=== PATIENT | male | born 1970 | race African-American/Black ===

== ENCOUNTER → 2018-03-04 16:19 | Outpatient (CLI) | payer MEDICARE, MEDICAID ==
[~2018-03-04 16:19] MED LIST: CHOLESTEROL PILL; LOPID600 MG; NORCO 7.5/325 T1 TA1 PO
[2018-04-20 09:12] VITALS: BMI 25.4
== END | disposition home or self-care (01) ==
LOC: D.MRI 16:19
DX: M25.561 Pain in right knee (principal)

== ENCOUNTER 2018-03-20 01:20 | Emergency (ER) | payer MEDICARE, MEDICAID ==
[~2018-03-20] VITALS: Ht 167.6 cm; Wt 70.9 kg
[2018-03-20 01:37] VITALS: Ht 167.6 cm; Wt 70.9 kg
[2018-03-20] MEDS ORDERED: CHOLESTEROL PILL (01:39)
[2018-03-20] MEDS ORDERED: NORCO 7.5/325 T1 TA1 PO (02:52)
[2018-03-20 03:12] VITALS: BP 136/78
[2018-04-23 05:41] VITALS: Ht 167.6 cm; Wt 70.9 kg
== END 2018-03-20 03:17 | disposition home or self-care (01) ==
LOC: D.ER 01:20
DX: S83.206D Unspecified tear of unspecified meniscus, current injury, right knee, subsequent encounter (principal); X58.XXXD Exposure to other specified factors, subsequent encounter; F17.200 Nicotine dependence, unspecified, uncomplicated

== ENCOUNTER 2018-04-11 15:42 | Outpatient (CLI) | payer MEDICARE ==
[~2018-04-11 15:42] MED LIST changes: -LOPID600 MG
[2018-04-23 05:41] VITALS: BMI 25.4
== END 2018-04-11 15:43 | disposition home or self-care (01) ==
LOC: D.OPS 15:42
DX: S83.281A Other tear of lateral meniscus, current injury, right knee, initial encounter (principal); Z01.810 Encounter for preprocedural cardiovascular examination; Z01.811 Encounter for preprocedural respiratory examination; Z01.812 Encounter for preprocedural laboratory examination; Z53.9 Procedure and treatment not carried out, unspecified reason

== ENCOUNTER 2018-04-20 07:00 | Day surgery (SDC) | payer MEDICARE ==
[2018-04-11 09:14] LABS: BASOPHILS 0.2 % (0-2); HEMATOCRIT 39.4 % (42.0-54.0); HEMOGLOBIN 13.4 g/dL (13.5-17.5); IMMATURE GRANULOCYTES 0.2 % (0-5); LYMPHOCYTES 19.8 % (15-50); MCH 27.8 pg (26.0-34.0); MCV 81.7 fL (80.0-100.0); MEAN PLATELET VOLUME 10.8 fL (7.4-10.4); MONOCYTES 12.2 % (2-11); NEUTROPHILS 62.6 % (40-80); PLATELET COUNT 186 10x3/uL (130-400); RBC 4.82 10x6/uL (4.20-6.10); RDW 12.6 % (11.5-14.5)
[2018-04-11 09:23] LABS: ANION GAP 9.2 mmol/L (8-16); CALCIUM 9.1 mg/dL (8.5-10.1); CARBON DIOXIDE 30.3 mmol/L (21.0-32.0); CREATININE - SERUM 1.2 mg/dL (0.6-1.3); POTASSIUM - SERUM 3.5 mmol/L (3.5-5.1)
[~2018-04-20] VITALS: Ht 167.6 cm; Wt 71.2 kg
[2018-04-20 07:35] LABS: ANION GAP 15.1 mmol/L (8-16); CARBON DIOXIDE 25.6 mmol/L (21.0-32.0); CREATININE - SERUM 1.2 mg/dL (0.6-1.3); POTASSIUM - SERUM 3.7 mmol/L (3.5-5.1)
[2018-04-20 07:58] LABS: BASOPHILS 1.3 % (0-2); EOSINOPHILS 4.7 % (0-7); HEMATOCRIT 38.6 % (42.0-54.0); HEMOGLOBIN 13.1 g/dL (13.5-17.5); IMMATURE GRANULOCYTES 0.8 % (0-5); LYMPHOCYTES 37.3 % (15-50); MCH 27.3 pg (26.0-34.0); MCHC 33.9 g/dL (31.0-37.0); MCV 80.6 fL (80.0-100.0); MEAN PLATELET VOLUME 11.1 fL (7.4-10.4); MONOCYTES 16.8 % (2-11); NEUTROPHILS 39.1 % (40-80); RBC 4.79 10x6/uL (4.20-6.10); RDW 12.7 % (11.5-14.5); WBC 3.8 10x3/uL (4.8-10.8)
[2018-04-20 07:59] LABS: PLATELET COUNT 236 10x3/uL (130-400)
[2018-04-20] MEDS ORDERED: LOPID600 MG (09:02)
[2018-04-20 09:12] VITALS: BP 103/72; Ht 167.6 cm; Wt 71.2 kg
== END 2018-04-20 18:40 | disposition home or self-care (01) ==
LOC: D.OPS 07:00
PROVIDERS: Orthopaedic Surgery
DX: S83.281A Other tear of lateral meniscus, current injury, right knee, initial encounter (principal); M23.51 Chronic instability of knee, right knee; Z01.810 Encounter for preprocedural cardiovascular examination; Z01.811 Encounter for preprocedural respiratory examination; Z01.812 Encounter for preprocedural laboratory examination

== ENCOUNTER 2018-04-22 23:14 | Inpatient (IN) | payer MEDICARE ==
[~2018-04-22] VITALS: Ht 167.6 cm; Wt 64.8 kg
--- NOTE | ~2018-04-22 | PN ---
PATIENT:JOANNE DIANE MEDICAL RECORD: [id number] LOCATION:D. D.211 ADMISSION DATE: 04/23/18 PROGRESS NOTE DATE OF SERVICE: 04/24/2018 SUBJECTIVE: This is a 47-year-old man who has had ankle fracture, it was repaired. The patient noted onset of shortness of breath, wheezes, and coughing. Also, has some chest pain when taking deep breaths. The patient was seen in the Emergency Room and CT scan showed bilateral hilar adenopathy as well as infiltrates. The patient was admitted to medical floor with the suspicion of sarcoidosis. He had pneumonia. The patient was started on antibiotics and prednisone. The patient feels better, breathing easier, and with no coughing now. PHYSICAL EXAMINATION: GENERAL: Physical exam reveals a well-developed, well-nourished man who is in no acute distress. VITAL SIGNS: Temperature 98.4, heart rate of 60, respiratory rate of 20, blood pressure 125/55, saturation is 96%. SHEENT: Unremarkable. NECK: Supple. No adenopathy. There are no supraclavicular nodes. LUNGS: Clear, symmetric, no wheezes, no coughing. HEART: Exam shows no jugular venous distention, no murmur or gallops. ABDOMEN: Benign, without any tenderness, distention or masses. EXTREMITIES: No clubbing, cyanosis or edema. LABORATORY DATA: White count 4.5, hemoglobin 10.9. Her chemistries are within normal limits. ASSESSMENT: 1. Pneumonia, likely from aspiration or community acquired or possibly healthcare associated post-surgery. The patient is improving on antibiotics. 2. Bilateral hilar adenopathy, most likely secondary to sarcoidosis. The patient improved on prednisone. Discussed the possibility of having a mediastinoscopy for biopsy and for diagnosis. The patient is agreeable to having this as an outpatient. 3. Ankle fracture. PLAN: 1. Continue prednisone. 2. Continue antibiotics and brochodilators. TRANSINT:[id number] Voice Confirmation ID: [id number] DOCUMENT ID: [id number] PROGRESS NOTE [id number] JOANNE DIANE MYRANDA LANGFORD at 1307 CC: [id number] DICTATION DATE: 04/24/18 5741 NET DEVELOPER CONTRACT: 04/25/18 0650 DIS IN 04/25/18 [facility] [address] [place] [address]
--- NOTE | ~2018-04-22 | CN ---
PATIENT NAME:JOANNE DIANE MEDICAL RECORD: [id number] : 70 LOCATION:D. D.2113 ADMIT DATE: 04/23/18 ACCOUNT: [id number] CONSULTING PHYSICIAN: MYRANDA LANGFORD REFERRING PHYSICIAN: SARAH LOMBARDI MD DATE OF CONSULTATION: 04/23/2018 HISTORY OF PRESENT ILLNESS: This is a 47-year-old man who has had a surgery recently. The patient recently had ankle surgery, right knee scope. The patient presented to the Emergency Room with shortness of breath as well as right chest pain. CT scan did not show any pulmonary emboli, but showed bilateral hilar adenopathy. The patient denies any fever or chills. There is no history of sarcoidosis. There is no family history. There is no orthopnea or PND. PAST MEDICAL HISTORY: Remarkable for angina, pneumonia. PAST SURGICAL HISTORY: The patient also had the hernia repair. He has also had ear tubes. He has also had the right knee arthroscopy. No diabetes or hypertension. ALLERGIES: Include SULFA, AMOXICILLIN, as well as PENICILLIN. MEDICATIONS: Include hydrocodone 7.5 q.4 hours p.r.n. FAMILY HISTORY: Remarkable for hypertension. SOCIAL HISTORY: The patient is a former smoker, has not smoked in the last month, has not drank or used any recreational drugs. REVIEW OF SYSTEMS: CONSTITUTIONAL: The patient denies any fever, chills, or headaches. The patient has lost some weight recently. SHEENT: Unremarkable. There is no nasal drainage. CARDIOPULMONARY: The patient denies orthopnea or PND. There is no anginal chest pain. GASTROINTESTINAL: There is no nausea, vomiting, or abdominal pain. GENITOURINARY: There is no frequency or dysuria. PHYSICAL EXAMINATION: GENERAL: Reveals middle-aged man who is in no acute distress. VITAL SIGNS: Blood pressure 150/86, heart rate of 68, respiratory rate of 18, temperature 98.6. SHEENT: Unremarkable. SKIN: No skin lesions. NECK: Supple. There is no tenderness. There is no adenopathy. Trachea is midline. No thyromegaly. CHEST: Shows mild inspiratory and expiratory wheeze on the left. There is no chest wall tenderness. HEART: Shows no jugular venous distention, murmur or gallops. ABDOMEN: Benign. EXTREMITIES: Shows no clubbing, cyanosis or edema. Right leg has an Davin wrap from the surgery. LABORATORY DATA: Showed white count of 5.8, hemoglobin 12.2, and platelet count CONSULT REPORT [id number] JOANNE DIANE is 211,000. Chemistry is remarkable for potassium 3.9, creatinine is 1.1, glucose is 109. Coronary angiogram showed mild patchy airspace disease in the lower lungs bilaterally. There is right greater than left nonspecific, likely representing atelectasis or infectious infiltrate. There is bulky bilateral hilar lymphadenopathy with subcarinal lymphadenopathy. Possible sarcoidosis. Chest x-ray shows no acute disease. ASSESSMENT: 1. Bilateral infiltrates or mucous plugs. 2. Bilateral hilar adenopathy suggestive of sarcoidosis. 3. Ankle surgery, recent. There is no PE. DISCUSSION: The patient most likely has a pneumonia and also sarcoidosis. The patient may need systemic steroids at this time because of some narrowing restriction on auscultation. He may need a biopsy of mediastinal lymph node for diagnosis. There is no obvious skin or peripheral lesions. PLAN: 1. Systemic steroids. 2. Bronchodilators. 3. Empiric antibiotics. 4. Oxygen supplementation as needed. Keep the sat above 92%. Time spent is 60 minutes discussing with the patient and family. TRANSINT:[id number] Voice Confirmation ID: [id number] DOCUMENT ID: [id number] MYRANDA LANGFORD at 1759 CC: [id number] DICTATION DATE: 04/23/181923 TELEPHONE ENGINEER: 04/24/18 0447 ADM IN [id number] [place] [address]
[~2018-04-22 23:14] MED LIST changes: +LOPID600 MG
[2018-04-23] VITALS (7 sets, daily range): BP systolic 100–126; BP diastolic 66–86; Ht 167.6 cm; Wt 64.8 kg
[2018-04-23 00:13] LABS: APTT 25.6 SECONDS (22.8-39.4); INR 1.1 (0.85-1.17); PROTIME 13.8 SECONDS (11.6-15.0)
[2018-04-23 00:14] LABS: D-DIMER-QUANTITATIVE 0.76 ug/mLFEU (0.20-0.54)
[2018-04-23 00:22] LABS: ALBUMIN 3.2 g/dL (3.4-5.0); ALKALINE PHOSPHATASE 68 U/L (46-116); ALT (SGPT) 36 U/L (10-68); BILIRUBIN - TOTAL 0.85 mg/dL (0.2-1.3); CALC OSMOLALITY 279 mosm/kg (275-300); CALCIUM 8.6 mg/dL (8.5-10.1); CARBON DIOXIDE 27.8 mmol/L (21.0-32.0); CHLORIDE - SERUM 104 mmol/L (98-107); CREATININE - SERUM 1.1 mg/dL (0.6-1.3); GLUCOSE 109 mg/dL (74-106); POTASSIUM - SERUM 3.9 mmol/L (3.5-5.1); PROTEIN - SERUM 6.7 g/dL (6.4-8.2); SODIUM 140 mmol/L (136-145); UREA NITROGEN 12 mg/dL (7-18); eGFR NON AFRICAN AMERICAN 76 mL/min (90-120)
[2018-04-23 00:26] LABS: BASOPHILS 0.5 % (0-2); EOSINOPHILS 2.4 % (0-7); HEMATOCRIT 36.2 % (42.0-54.0); HEMOGLOBIN 12.2 g/dL (13.5-17.5); IMMATURE GRANULOCYTES 0.3 % (0-5); LYMPHOCYTES 13.1 % (15-50); MCH 27.2 pg (26.0-34.0); MCHC 33.7 g/dL (31.0-37.0); MCV 80.8 fL (80.0-100.0); MEAN PLATELET VOLUME 10.9 fL (7.4-10.4); MONOCYTES 10.5 % (2-11); NEUTROPHILS 73.2 % (40-80); PLATELET COUNT 211 10x3/uL (130-400); RBC 4.48 10x6/uL (4.20-6.10); RDW 12.7 % (11.5-14.5); WBC 5.8 10x3/uL (4.8-10.8)
[2018-04-23 00:33] LABS: CKMB 0.3 U/L (0.0-3.6); CREATINE KINASE 94 UL (21-232); MAGNESIUM - SERUM 1.6 mg/dL (1.8-2.4); TROPONIN-I 0.016 ng/mL (0.000-0.060)
[2018-04-23 15:02] LABS: CKMB 0.3 U/L (0.0-3.6); CREATINE KINASE 60 UL (21-232)
[2018-04-23 15:03] LABS: TROPONIN-I < 0.017 ng/mL (0.000-0.060)
[2018-04-23 19:04] LABS: CKMB 0.5 U/L (0.0-3.6); CREATINE KINASE 76 UL (21-232)
[2018-04-23 19:05] LABS: TROPONIN-I 0.017 ng/mL (0.000-0.060)
[2018-04-24 02:52] LABS: BASOPHILS 0.4 % (0-2); EOSINOPHILS 4.4 % (0-7); HEMATOCRIT 32.6 % (42.0-54.0); HEMOGLOBIN 10.9 g/dL (13.5-17.5); IMMATURE GRANULOCYTES 0.2 % (0-5); LYMPHOCYTES 27.8 % (15-50); MCH 27.1 pg (26.0-34.0); MCHC 33.4 g/dL (31.0-37.0); MCV 81.1 fL (80.0-100.0); MEAN PLATELET VOLUME 10.7 fL (7.4-10.4); MONOCYTES 12.4 % (2-11); NEUTROPHILS 54.8 % (40-80); PLATELET COUNT 191 10x3/uL (130-400); RBC 4.02 10x6/uL (4.20-6.10); RDW 12.8 % (11.5-14.5); WBC 4.5 10x3/uL (4.8-10.8)
[2018-04-24 03:07] LABS: ALBUMIN 2.7 g/dL (3.4-5.0); ALKALINE PHOSPHATASE 76 U/L (46-116); ALT (SGPT) 33 U/L (10-68); BILIRUBIN - TOTAL 0.68 mg/dL (0.2-1.3); CALC OSMOLALITY 280 mosm/kg (275-300); CALCIUM 8.2 mg/dL (8.5-10.1); CARBON DIOXIDE 23.3 mmol/L (21.0-32.0); CHLORIDE - SERUM 108 mmol/L (98-107); GLUCOSE 123 mg/dL (74-106); MAGNESIUM - SERUM 1.8 mg/dL (1.8-2.4); POTASSIUM - SERUM 4.1 mmol/L (3.5-5.1); PROTEIN - SERUM 6.1 g/dL (6.4-8.2); SODIUM 141 mmol/L (136-145); UREA NITROGEN 9 mg/dL (7-18); eGFR NON AFRICAN AMERICAN 85 mL/min (90-120)
[2018-04-24 03:23] LABS: CKMB 0.4 U/L (0.0-3.6); CREATINE KINASE 72 UL (21-232); TROPONIN-I 0.021 ng/mL (0.000-0.060)
[2018-04-24 04:00] VITALS: BP 123/85
[2018-04-24 08:37] VITALS: BP 129/76
[2018-04-24 12:27] VITALS: BP 125/55
[2018-04-24 20:00] VITALS: BP 126/76
[2018-04-25] VITALS: BP 117/69
[2018-04-25 04:00] VITALS: BP 126/75
[2018-04-25 05:03] LABS: BASOPHILS 0.1 % (0-2); EOSINOPHILS 0.1 % (0-7); HEMATOCRIT 32.5 % (42.0-54.0); LYMPHOCYTES 13.6 % (15-50); MCH 27.3 pg (26.0-34.0); MCHC 33.8 g/dL (31.0-37.0); MCV 80.6 fL (80.0-100.0); MEAN PLATELET VOLUME 11.1 fL (7.4-10.4); MONOCYTES 6.7 % (2-11); NEUTROPHILS 78.5 % (40-80); PLATELET COUNT 225 10x3/uL (130-400); RBC 4.03 10x6/uL (4.20-6.10); RDW 12.8 % (11.5-14.5)
[2018-04-25 05:22] LABS: WBC 7.4 10x3/uL (4.8-10.8)
[2018-04-25 05:46] LABS: ALBUMIN 2.6 g/dL (3.4-5.0); ALKALINE PHOSPHATASE 82 U/L (46-116); ALT (SGPT) 30 U/L (10-68); BILIRUBIN - TOTAL 0.43 mg/dL (0.2-1.3); CALC OSMOLALITY 286 mosm/kg (275-300); CALCIUM 8.2 mg/dL (8.5-10.1); CARBON DIOXIDE 22.2 mmol/L (21.0-32.0); CHLORIDE - SERUM 110 mmol/L (98-107); CREATININE - SERUM 0.8 mg/dL (0.6-1.3); MAGNESIUM - SERUM 1.9 mg/dL (1.8-2.4); PROTEIN - SERUM 6.3 g/dL (6.4-8.2); SODIUM 143 mmol/L (136-145); UREA NITROGEN 7 mg/dL (7-18); eGFR NON AFRICAN AMERICAN > 90 mL/min (90-120)
[2018-04-25 05:49] LABS: GLUCOSE 173 mg/dL (74-106)
[2018-04-25 09:39] VITALS: BP 133/83
[2018-04-25 12:32] VITALS: BP 128/88
[2018-04-25 17:05] VITALS: BP 127/78
[2018-04-25] MEDS ORDERED: ZITHROMAX250 MG PO (18:52)
[2018-04-25] MEDS ORDERED: STERAPRED DS 1010 MG PO (18:53)
== END 2018-04-25 20:20 | disposition home or self-care (01) | DRG 195 ==
LOC: D.ER 23:14 → D.M2 04-23 03:20 → D.EDHOLD 04-23 03:20 → D.M2 04-23 04:19
PROVIDERS: Family Medicine; Family Medicine Adult Medicine
DX: J18.9 Pneumonia, unspecified organism (principal); S82.891D Other fracture of right lower leg, subsequent encounter for closed fracture with routine healing; R59.0 Localized enlarged lymph nodes

== ENCOUNTER 2019-03-07 19:33 | Observation (INO) | payer MEDICARE, OTHER ==
[~2019-03-07] VITALS: Ht 167.6 cm; Wt 74.1 kg
--- NOTE | ~2019-03-07 | HEMODYNAMI ---
PATIENT:JOANNE DIANE MEDICAL RECORD: [id number] : 70 [facility] AD[facility]ION DATE: 03/07/19 Generatedon:03/08/201910:51 Patient name: JOANNE DIANE Patient #: [id number] SSN: D OB: 1970 Date of study: 03/08/2019 Page: Of Hemodynamic Procedure Report Patient Data Patient Demographics Procedure consent was obtained First Name: JOANNE Gender: Male Last Name: ROXI : 1970 Middle Initial: M Age: 48 year(s) Patient #: [id number] Race: Black Additional ID: [id number] Contact details [address]: [address] [place] [address] State: [place] City: [place] Zip code: [address] Admission Admission Data Admission Date: 03/07/2019 Admission Time: 20:39 Room #: .2120 Weight (lbs.): 163.14 Weight (kg.): 74 Procedure Procedure Types Cath Procedure Diagnostic Procedure LHC LHC w/Coronaries FFR/IVUS FFR Initial FFR Additional Sedation Charges Moderate Sedation up to 15 minutes PCI Procedure Coronary Stent Coronary Stent Initial Procedure Description Procedure Date Procedure Date: 03/08/2019 Procedure Start Time: 10:29 Procedure End Time: 10:47 Procedure Staff Name Function Savage Dillon MD Performing Physician Isreal Schneider RT Monitor Fercho Kruger RT Monitor Richard Latham RN Nurse Izabel John RN Motion Picture Equipment Supervisor Trevor Villanueva RT Scrub Procedure Data Cath Procedure Fluoroscopy Diagnostic fluoroscopy Total fluoroscopy Time: 3.2 time: 3.2 min min Diagnostic fluoroscopy Total fluoroscopy dose: 564 dose: 564 mGy mGy Contrast Material Contrast Material Type Amount (ml) Isovue 300 99 Entry Location Entry Primary Successful Side Size Upsize Upsize Entry Closure Succes sful Closure Location (Fr) 1 (Fr) 2 (Fr) Remarks Device Remarks Femoral Right 5 Fr 6 Fr Exoseal artery Short Estimated blood loss: 10 ml Diagnostic catheters Device Type Used For End Catheter Placement MULTIPACK Pigtail 5 Fr Procedure catheter MULTIPACK JL 4.0 5Fr Procedure catheter MULTIPACK 3DRC 5Fr Procedure catheter Procedure Complications No complications Procedure Medications Medication Administration Route Dosage 0.9% NaCl I.V. 100 ml/hr Oxygen 2 l/min Heparin Flush Bag added to field 2 bags (1000units/500ml NS) Lidocaine 2% added to field 20 Benadryl I.V. 50 mg Versed I.V. 1 mg Fentanyl I.V. 50 mcg Heparin Bolus I.V. 4000 units Plavix P.O. 75 mg Hemodynamics Rest Heart Rate: 68 (bpm) Pressure Samples Time Site Value (mmHg) Purpose Heart Use Rate(bpm) 10:30 LV 146/17,27 Snapshot 62 Snapshots Pre Cath Intra NCS Post Cath Vital Signs Time Heart Resp SPO2 etCO2 NIBP (mmHg) Rhythm Pain Sedation Rate (ipm) (%) (mmHg) Status Level (bpm) 9:38:59 73 24 100 0 147/89(106) NSR 0 (11) 10(A) , No pain 9:43:15 68 24 100 0 127/81(102) NSR 0 (11) 10(A) , No pain 9:47:23 67 25 100 32.4 124/81(95) NSR 0 (11) 10(A) , No pain 9:51:33 71 24 100 33.9 118/73(92) NSR 0 (11) 10(A) , No pain 9:55:41 68 22 100 36.2 126/68(84) NSR 0 (11) 10(A) , No pain 9:59:50 67 18 100 35.4 114/72(92) NSR 0 (11) 10(A) , No pain 10:03:56 63 21 100 34.7 112/71(85) NSR 0 (11) 10(A) , No pain 10:08:02 62 21 100 33.9 123/68(89) NSR 0 (11) 10(A) , No pain 10:12:12 67 21 100 34.7 113/66(81) NSR 0 (11) 10(A) , No pain 10:16:18 65 21 100 33.9 115/67(89) NSR 0 (11) 10(A) , No pain 10:20:23 63 23 100 32.4 116/71(86) NSR 0 (11) 10(A) , No pain 10:24:31 61 19 100 34.7 113/66(85) NSR 0 (11) 9(A) , No pain 10:28:37 62 19 100 35.4 109/68(83) NSR 0 (11) 9(A) , No pain 10:32:41 66 21 100 34.6 115/67(90) NSR 0 (11) 9(A) , No pain 10:36:45 64 19 100 36.2 117/72(92) NSR 0 (11) 9(A) , No pain 10:40:50 69 20 98 38.5 113/70(80) NSR 0 (11) 9(A) , No pain 10:44:56 62 20 100 34.7 117/68(86) NSR 0 (11) 9(A) , No pain Medications Time Medication Route Dose Verified Delivered Reason Notes Effectiveness by by 9:46:19 0.9% NaCl I.V. 100 Richard Richard Per physician ml/hr Noa Latham RN RN 9:46:31 Oxygen 2 Richard Richard for low 02 sats l/min Noa Latham RN RN 9:46:43 Heparin Flush added 2 Richard Richard used for Bag to bags Noa Latham procedure (1000units/500ml RN RN NS) 9:46:55 Lidocaine 2% added 20ml Richard Richard for local to vial Noa Latham anesthetic field [facility] RN 9:47:05 Benadryl I.V. 50 mg Richard Richard Per physician Noa Latham RN RN 10:23:06 Versed I.V. 1 mg Richard Richard for sedation Noa Latham RN RN 10:23:16 Fentanyl I.V. 50 Richard Richard for sedation mcg Noa Latham RN RN 10:41:20 Heparin Bolus I.V. 4000 Richard Richard for units Noa Latham anticoagulation RN RN 10:51:10 Plavix P.O. 75 mg Richard Richard for Noa Latham antiplatelet RN RN therapy Procedure Log Time Note 9:15:24 Trevor MONREAL(R) (CV) sent for patient. Start room use. 9:36:40 Time tracking: Regular hours (M-F 7:00 - 5:00) 9:36:44 Plan of Care:Hemodynamics will remain stable., Cardiac rhythm will remain stable., Comfort level will be maintained., Respiratory function will remain adequate., Patient/ family verbilizes understanding of procedure., Procedure tolerated without complication., Recovers from procedure without complications.. 9:37:09 Patient received from PCU to [facility] Alert and oriented. Tansferred to table in Supine position. 9:37:10 Warm blankets applied, and josep hugger turned on for patient comfort. 9:37:11 Correct patient and procedure confirmed by team. 9:37:12 Signed procedure consent form obtained from patient. 9:37:12 ECG and BP/O2 sat monitors applied to patient. 9:37:49 Vital chart was started 9:46:19 0.9% NaCl 100 ml/hr I.V. was administered by Richard Latham RN; Per physician; 9:46:27 Baseline sample Acquired. 9:46:31 Oxygen 2 l/min was administered by Richard Latham RN; for low 02 sats; 9:46:36 Rhythm: sinus rhythm 9:46:37 Full Disclosure recording started 9:46:43 Heparin Flush Bag (1000units/500ml NS) 2 bags added to field was administered by Richard Latham RN; used for procedure; 9:46:49 H&P Date Dictated: 03/08/2019 Within 30 days and on chart., H&P Addendum completed by physician on day of procedure. (MUST COMPLETE FOR ALL OUTPATIENTS). 9:46:50 Pre-procedure instructions explained to patient. 9:46:51 Pre-op teaching completed and patient verbalized understanding. 9:46:55 Lidocaine 2% 20ml vial added to field was administered by Richard Latham RN; for local anesthetic; 9:46:55 Family in patients room. 9:46:56 Patient NPO since Midnight. 9:46:58 Is the patient allergic to Iodine/contrast media? No. 9:47:01 Is patient on blood thinner?Yes 9:47:05 Benadryl 50 mg I.V. was administered by Richard Latham RN; Per physician; 9:47:09 ACC The patient was administered the following blood thiners within the last 24 hours: ACCPlavix 9:47:10 Patient diabetic? No. 9:47:12 Previous problem with sedation/anesthesia? No ? 9:47:13 Snore? Yes 9:47:14 Sleep apnea? No 9:47:15 Deviated septum? No 9:47:16 Opens mouth fully? Yes 9:47:16 Sticks out tongue? Yes 9:47:23 Airway obstruction? No ? 9:47:27 Dentures? No ? 9:47:30 Pre procedure: right dorsailis pedis pulse 1+ Palpable, but thready & weak; easily obliterated 9:47:31 Patient pain scale 0/10 ?. 9:47:35 IV patent on arrival in right forearm with 0.9% NaCl at [facility]. 9:47:44 Lab results completed and on chart. 9:47:48 Right groin area was prepped with chlora-prep and draped in sterile fashion 9:47:49 Alarms reviewed by R. N. 9:47:49 Sharps counted by scrub and verified by R.N. 9:47:53 Use device set Femoral Dx 9:47:55 Tegaderm 4 x 4 (1626W) opened to sterile field. 9:49:10 ACIST Manifold (92004) opened to sterile field. 9:49:11 ACIST Hand Control (31170) opened to sterile field. 9:49:13 ACIST Syringe (73311) opened to sterile field. 9:49:13 Bag Decanter (2002S) opened to sterile field. 9:49:14 Medline Cath Pack ([id number]) opened to sterile field. 9:49:18 DIAGNOSTIC Multipack 5Fr catheter set (IY5871) opened to sterile field. 9:49:23 SHEATH 5FR Worthington (FGB045) opened to sterile field. 9:49:24 EMERALD Guide Wire (855-492) opened to sterile field. 9:50:06 Procedure type changed to Cath procedure, Diagnostic procedure, LHC, LHC w/Coronaries, FFR/IVUS, FFR Initial, FFR Additional, Sedation Charges, Moderate Sedation up to 15 minutes, PCI procedure, Coronary Stent, Coronary Stent Initial 9:54:52 Zero performed for pressure channel P1 9:55:11 Zero performed for pressure channel P1 9:55:37 Zero performed for pressure channel P1 10:04:50 Patient Weight : 163.14 lbs 10:: Physician arrived 10:: --------ALL STOP TIME OUT------ 10::24 Final Timeout: patient, procedure, and site verified with staff and physician. All members of the team are in agreement. 10:: Right groin site verified by team. 10::28 Maximum allowable Isovue 300 dose 300ml. Physician notified. (300ml for normal creatinines. For patients with creatinine of 1.7 or higher multiply weight(kg) x 5 divided by creatinine.) 10::32 Fire Safety Assessment: A--An alcohol-based skin anteseptic being used preoperatively., C--Open oxygen or nitrous oxide is being used., D--An ESU, laser, or fiber-optic light is being used. 10::35 Physical assessment completed. ASA score P 2 - A patient with mild systemic disease as per Savage Dillon MD. 10::37 Sedation plan: IV Moderate Sedation Medication:Versed, Fentanyl 10:23:06 Versed 1 mg I.V. was administered by Richard Latham RN; for sedation; 10::16 Fentanyl 50 mcg I.V. was administered by Richard Latham RN; for sedation; 10::25 Procedure started. 10::28 Local anesthetic to right femoral artery with Lidocaine 2% by Savage Dillon MD.INITIAL ACCESS ONLY 10:29:35 A 5 Fr sheath was inserted into the Right Femoral artery 10:30:12 A MULTIPACK Pigtail 5 Fr catheter was advanced over the wire and used for Procedure. 10:30:59 LV gram done using WAGNER 10:31:02 Injector settings: Ml/sec: 10, Volume: 20, 10:31:04 LV hemodynamics recorded. 10:31:13 EF : 60 % 10:31:14 Catheter exchanged over wire. 10:31:20 A MULTIPACK JL 4.0 5Fr catheter was advanced over the wire and used for Procedure. 10:32:14 LCA angiography performed. 10:32:49 Catheter exchanged over wire. 10:32:53 A MULTIPACK 3DRC 5Fr catheter was advanced over the wire and used for Procedure. 10:33:23 RCA angiography performed. 10:33:24 Catheter removed. 10:33:42 GUIDE 6FR XBLAD 3.5 catheter ([id number]) opened to sterile field. 10:33:42 Bon Wier Verrata Plus pressure wire (49497N) opened to sterile field. 10:33:43 INFLATOR Merit BasixCompak (UY5470) opened to sterile field. 10:33:43 SHEATH 6FR Worthington (PQX687) opened to sterile field. 10:34:34 Sheath upsized to a 6 Fr Short. 10:34:43 6 Fr xblad 3.5 guide catheter was inserted over the wire 10:34:46 FFR/IFR wire advanced. 10:37:09 Wire advanced across lesion. 10:37:42 2nd diag lesion measured at 0.96 with IFR 10:39:32 Wire redirected to 1st diag. 10:40:00 Wire advanced across lesion. 10:40:49 1st diag lesion measured at 0.75 with IFR 10:41:20 Heparin Bolus 4000 units I.V. was administered by Richard Latham RN; for anticoagulation; 10:42:48 Pre PCI Site: [place] Diag1 has 90% stenosis. 10:43:07 Place stent Inflation Number: 1 A COBRA RX 2.5 X 8 Stent was prepped and advanced across the 1st Diag 90. The stent was deployed at 11 CHASITY for 0:05 (min:sec) 0. 10:43:50 Post PCI Site: [place] Diag1 has 0% stenosis. 10:43:53 Stent catheter was removed intact over wire. 10:43:53 Wire removed. 10:43:54 Guide catheter removed. 10:43:59 EXOSEAL 6Fr (EX600) opened to sterile field. 10:44:06 Sheath removed intact; hemostasis achieved with Exoseal to the Right Femoral artery. 10:44:08 Procedure ended.(Physican Out) 10:45:52 Fluoroscopy time 03.20 minutes. 10:45:56 Fluoroscopy dose: 564 mGy 10:45:56 Flurop Dose total: 564 10:46:06 Contrast amount:Isovue 300 99ml. 10:46:08 Sharps counted by scrub and verified by R.N. 10:46:08 Insertion/operative site no bleeding no hematoma. 10:46:11 Post-op/insertion site Right Femoral artery dressed using a 4 x 4 and Tegaderm. 10:46:14 Post right femoral artery:stable, soft, clean and dry 10:46:15 Post Procedure Pulses reassessed and unchanged 10:46:21 Post-procedure physical assessment completed. ASA score P 2 - A patient with mild systemic disease as per Savage Dillon MD. 10:46:24 Post procedure rhythm: unchanged. 10:46:27 Estimated blood loss: 10 ml 10:46:28 Post procedure instruction explained to patient.Patient verbalizes understanding. 10:46:28 Patient needs reinforcement of post procedure teaching. 10:47:27 Procedure and supply charges have been captured, reviewed, submitted and are correct. 10:47:30 Procedure Complication : No complications 10:47:40 Vital chart was stopped 10:47:41 See physician's report for complete and final results. 10:47:44 Report given to Pre/Post Procedure Room. 10:47:47 Patient transfered to Pre/Post Procedure Room with Stretcher. 10:47:48 Procedure ended. 10:47:48 Full Disclosure recording stopped 10:47:56 End room use (Document Last) 10:51:10 Plavix 75 mg P.O. was administered by Richard Latham RN; for antiplatelet therapy; Intervention Summary Intervention Notes Time ActionType Lesion and Equipment Action# Pressure Duration Attributes Used 10:43:07 Place stent 1st Diag COBRA RX 1 11 00:05 2.5 X 8 Stent Device Usage Item Name Manufacture Quantity Catalog Hospital Part Current Minimal Lot# / Number Charge Number Stock Stock Serial# Code Tegaderm 4 x 4 3M 1 1626W [id number] [id number] 5 (1626W) ACIST Manifold Acist 1 25509 289445 468820 457323 5 (50093) Medical Systems Inc ACIST Hand Acist 1 14885 436406 541368 810881 5 Control Medical (90176) Systems Inc ACIST Syringe Acist 1 27666 598856 137649 168258 20 (85209) Medical Systems Inc Bag Decanter Microtek 1 523081 19918 787670 5 () Medical Inc. Medline Cath Medline 1 [id number] 334700 59154 906202 5 Pack ([id number]) DIAGNOSTIC Cardinal 1 SF5030 699447 53054 638805 30 Multipack 5Fr Health catheter set (VK4973) SHEATH 5FR Terumo 1 RKJ704 268723 110600 439277 5 [place] (PBG404) EMERALD Guide Cardinal 1 502455 574609 392302 956792 5 Wire (502455) Health MULTIPACK Cardinal 1 850823 5 Pigtail 5 Fr Health catheter MULTIPACK JL Cardinal 1 107946 5 4.0 5Fr Health catheter MULTIPACK 3DRC Cardinal 1 758740 5 5Fr catheter Health GUIDE 6FR Cardinal 1 [id number] 799011 418139 524688 10 XBLAD 3.5 Health catheter ([id number]) Bon Wier Bon Wier 1 16800Q 119331 [id number] 800640 5 Verrata Plus pressure wire (72536T) INFLATOR Merit Merit 1 TP7018 519026 997179 160732 15 [facility] Medical (LX2593) SHEATH 6FR Terumo 1 YUW162 407325 036389 542050 40 Worthington (DOQ170) COBRA RX 2.5 X Celonova 1 [id number] 684125 [id number] 24667683 5 [id number] 8 stent Biosciences ([id number]) EXOSEAL 6Fr Cardinal 1 EX600 569306 117552 521479 10 (EX600) Health Signature Audit Show Low Stage Time Signature Unsigned Intra-Procedure 03/08/2019 Fercho Kruger 10:51:45 AM RT(R) Signatures Monitor : Isreal Schneider RT Signature : Date : Time : Monitor : Fercho Kruger RT Signature : Date : Time : [facility] [address] [place] [address]
--- NOTE | ~2019-03-07 | DS ---
PATIENT:JOANNE DIANE :70 MEDICAL RECORD: [id number] DISCHARGE SUMMARY ADMISSION DATE: 03/07/19 DISCHARGE DATE: 03/08/19 DISCHARGE DIAGNOSES: 1. Percutaneous transluminal coronary angioplasty stent of left anterior descending diagonal this admission. 2. Angina. 3. Coronary artery disease. 4. Hypertension. HOSPITAL COURSE: This is a gentleman with no previous cardiac history, presents with unstable anginal symptomatology, found to have significant disease of the LAD diagonal, underwent successful PTCA stent of the LAD diagonal. No further anginal symptomatology. Discharged home with the addition of aspirin and Plavix to his medical regimen. Follow up with [facility] in 1 month. TRANSINT:[id number] Voice Confirmation ID: [id number] DOCUMENT ID: [id number] ANGELA GARCÍA MD CC: [id number] DICTATION DATE: 03/08/19 105 BASEBALL COACH: 03/09/19 0015 DIS IN 03/08/19 [facility] [address] [place] [address]
[~2019-03-07 19:33] MED LIST changes: +STERAPRED DS 1010 MG PO; +ZITHROMAX250 MG PO
[2019-03-07] MEDS ORDERED: MOBIC7.5 MG PO (20:09)
[2019-03-07] MEDS ORDERED: LISINOPRIL5 MG PO (20:09)
[2019-03-07] MEDS ORDERED: FLOMAX0.4 MG PO (20:09)
[2019-03-07 20:32] LABS: BASOPHILS 0.6 % (0-2); EOSINOPHILS 3.8 % (0-7); HEMATOCRIT 38.2 % (42.0-54.0); HEMOGLOBIN 12.8 g/dL (13.5-17.5); LYMPHOCYTES 27.9 % (15-50); MCH 27.9 pg (26.0-34.0); MCHC 33.5 g/dL (31.0-37.0); MCV 83.2 fL (80.0-100.0); MEAN PLATELET VOLUME 11.2 fL (7.4-10.4); NEUTROPHILS 58.7 % (40-80); RBC 4.59 10x6/uL (4.20-6.10); RDW 13.4 % (11.5-14.5)
[2019-03-07 20:41] LABS: APTT 24.1 SECONDS (22.8-39.4); INR 1.06 (0.85-1.17); PROTIME 13.3 SECONDS (11.6-15.0)
[2019-03-07 20:42] LABS: PLATELET COUNT 153 10x3/uL (130-400)
[2019-03-07 20:44] VITALS: BP 127/76
[2019-03-07 20:49] LABS: ALBUMIN 3.8 g/dL (3.4-5.0); ALKALINE PHOSPHATASE 52 U/L (46-116); ALT (SGPT) 34 U/L (10-68); BILIRUBIN - TOTAL 0.99 mg/dL (0.2-1.3); CALC OSMOLALITY 284 mosm/kg (275-300); CALCIUM 8.9 mg/dL (8.5-10.1); CHLORIDE - SERUM 105 mmol/L (98-107); CREATININE - SERUM 1.4 mg/dL (0.6-1.3); GLUCOSE 159 mg/dL (74-106); POTASSIUM - SERUM 3.7 mmol/L (3.5-5.1); PROTEIN - SERUM 7.4 g/dL (6.4-8.2); SODIUM 141 mmol/L (136-145); UREA NITROGEN 16 mg/dL (7-18); eGFR NON AFRICAN AMERICAN 57 mL/min (90-120)
[2019-03-07 21:01] LABS: CREATINE KINASE 431 UL (21-232); TROPONIN-I 0.048 ng/mL (0.000-0.060)
[2019-03-07] MEDS ORDERED: LIPITOR20 MG PO (21:23)
--- NOTE | 2019-03-07 21:26 | NUR ---
RECIEVED TO ROOM 2119 FROM ER VIA WC. PT A&O. RESPERATIONS EVEN ON RA. VITALS STABLE. IV TO RIGHT AC WITH NS INFUSING, IV SITE CLEAN AND DRY. MED REC AND HISTORY OBTAINED. PLACED ON TELEMETRY, 67 SR. PT CURRENTLY DENIES PAIN OR NEEDS, BED LOW, CL IN REACH. PTS MOTHER AT BED SIDE.
[2019-03-08 01:58] VITALS: Ht 167.6 cm; Wt 74.1 kg
[2019-03-08 03:03] LABS: BASOPHILS 0.5 % (0-2); HEMOGLOBIN 11.7 g/dL (13.5-17.5); IMMATURE GRANULOCYTES 0.3 % (0-5); MCH 27.7 pg (26.0-34.0); MCHC 33.4 g/dL (31.0-37.0); MCV 82.9 fL (80.0-100.0); MEAN PLATELET VOLUME 10.8 fL (7.4-10.4); MONOCYTES 12.9 % (2-11); NEUTROPHILS 41.3 % (40-80); PLATELET COUNT 142 10x3/uL (130-400); RBC 4.22 10x6/uL (4.20-6.10); RDW 13.2 % (11.5-14.5)
[2019-03-08 03:04] LABS: WBC 3.6 10x3/uL (4.8-10.8)
--- NOTE | 2019-03-08 03:32 | NUR ---
IN BED RESTING WITH EYES CLOSED, RESPERATIONS EVEN, NO S/S DISTRESS NOTED.
[2019-03-08 03:39] LABS: ALBUMIN 3.4 g/dL (3.4-5.0); ALKALINE PHOSPHATASE 48 U/L (46-116); ALT (SGPT) 33 U/L (10-68); BILIRUBIN - TOTAL 0.92 mg/dL (0.2-1.3); CALC OSMOLALITY 282 mosm/kg (275-300); CALCIUM 8.4 mg/dL (8.5-10.1); CARBON DIOXIDE 30.2 mmol/L (21.0-32.0); CHLORIDE - SERUM 107 mmol/L (98-107); CKMB 0.8 U/L (0.0-3.6); CREATINE KINASE 366 UL (21-232); CREATININE - SERUM 1.2 mg/dL (0.6-1.3); PROTEIN - SERUM 6.7 g/dL (6.4-8.2); SODIUM 142 mmol/L (136-145); TROPONIN-I 0.058 ng/mL (0.000-0.060); UREA NITROGEN 16 mg/dL (7-18); eGFR NON AFRICAN AMERICAN 69 mL/min (90-120)
[2019-03-08 03:40] LABS: GLUCOSE 85 mg/dL (74-106)
[2019-03-08 04:00] VITALS: BP 94/59
--- NOTE | 2019-03-08 07:19 | NUR ---
REPORT RECEIVED. WILL CONTINUE WITH POC. PT CURRENTLY LYING SUPINE. CALL LIGHT W/I REACH. PT IS AAO AND UP AD GILMAR. RR EVEN AND UNLABORED ON RA. FAMILY AT BEDSIDE. NS INFUSING @75ML/HR VIA R.AC PIV. PT IS NPO. NO S/S OF DISTRESS NOTED. WILL CTM.
[2019-03-08 08:31] VITALS: BP 94/60
--- NOTE | 2019-03-08 09:33 | NUR ---
CORNICE MAKER TEAM PREOPED PT, SIGNED CONSENTS, AND TRANSFERED PT TO CORNICE MAKER. WILL CTM.
[2019-03-08] MEDS ORDERED: PLAVIX75 MG PO (11:00)
[2019-03-08] MEDS ORDERED: BAYER CHEWABLE81 MG PO (11:00)
--- NOTE | 2019-03-08 11:02 | NUR ---
PT ARRIVED BY STRETCHER. PLACED ON MONITORS. ASSESSMENT COMPLETED. FAMILY AT BEDSIDE.
--- NOTE | 2019-03-08 11:04 | NUR ---
AND BELONGINGS TAKEN TO ROOM 2 IN SHOT MAN RECOVERY.
--- NOTE | 2019-03-08 11:17 | NUR ---
RIGHT GROIN DRESSING C/D/I. NO S/S OF HEMATOMA NOTED. VSS. FAMILY AT BEDSIDE. PT RESTING COMFORTABLY. DENIES PAIN/NAUSEA.
--- NOTE | 2019-03-08 11:47 | NUR ---
RIGHT GROIN DRESSING C/D/I. NO S/S OF HEMATOMA NOTED. VSS. CALL LIGHT WITHIN REACH. FAMILY AT BEDSIDE.
--- NOTE | 2019-03-08 12:20 | NUR ---
RIGHT GROIN DRESSING C/D/I. NO S/S OF HEMATOMA NOTED. VSS. NO NEEDS AT THIS TIME.
--- NOTE | 2019-03-08 12:50 | NUR ---
PT RESTING COMFORABLY. MOTHER AT BEDSIDE. PT GIVEN SANDWICH TO EAT. STILL IN SUPINE POSITION. MOTHER TO ASSIST. RIGHT GROIN DRESSING C/D/I. NO S/S OF HEMATOMA NOTED.
--- NOTE | 2019-03-08 13:30 | NUR ---
PT RESTING COMFORTABLY. VSS. RIGHT GROIN DRESSING C/D/I. NO S/S OF HEMATOMA NOTED. PT VOIDED IN URINAL WITHOUT DIFFICULTY.
--- NOTE | 2019-03-08 14:02 | NUR ---
HEAD OF BED INC TO 30 DEGREES. TOLERATED WELL. RIGHT GROIN DRESSING C/D/I. NO S/S OF HEMATOMA NOTED. VSS. FAMILY AT BEDSIDE. NO NEEDS AT THIS TIME.
--- NOTE | 2019-03-08 14:10 | NUR ---
PLAVIX PRESCRIPTION CALLED IN TO [facility] PER PT'S MOTHER'S REQUEST. SPOKE WITH JOE ASHBY.
--- NOTE | 2019-03-08 14:18 | NUR ---
DISCUSSED DISCHARGE INSTRUCTIONS WITH PT AND PT'S MOTHER. THEY VOICED UNDERSTANDING. RIGHT GROIN DRESSING C/D/I. NO S/S OF HEMATOMA NOTED. VSS.
--- NOTE | 2019-03-08 14:30 | NUR ---
RIGHT ARM PIV D/C'D WITH CATH TIP INTACT. PT TOLERATED WELL. RIGHT GROIN DRESSING C/D/I. PT INSTRUCTED TO GET UP AND DRESSED. MOTHER AT BEDSIDE TO ASSIST.
--- NOTE | 2019-03-08 15:00 | NUR ---
PT TAKEN OUT TO VEHICLE BY WHEELCHAIR. NO S/S OF DISTRESS NOTED. ALL BELONGINGS AND PAPERWORK IN HAND. RIGHT GROIN DRESSING C/D/I. NO S/S OF HEMATOMA NOTED.
--- NOTE | 2019-03-08 18:07 | OP ---
PATIENT NAME: JOANNE DIANE MEDICAL RECORD: [id number] :70 LOCATION:[facility] ADMISSION DATE:03/07/19 SURGEON: ANGELA GARCÍA MD DATE OF OPERATION: 03/08/2019 PROCEDURES: 1. PTCA and stent, LAD diagonal. 2. IFR, LAD diagonal. 3. Left heart catheterization. 4. Selective coronary angiography. 5. Left ventriculogram. INDICATION: Unstable angina and coronary artery disease. PROCEDURE IN DETAIL: After informed consent was obtained with detailed description of risks and benefits as well as alternative therapies, the patient elected to proceed with angiogram and angioplasty. The right femoral area was prepped and draped in normal sterile fashion. The right femoral artery was cannulated via modified Seldinger technique with placement of 6-Occitan sheath. All catheters were exchanged through this sheath. FINDINGS: Left ventriculogram performed in standard 30-degree WAGNER view reveals good cardiac wall motion throughout all segments. Overall ejection fraction is estimated at 60%. SELECTIVE CORONARY ANGIOGRAPHY: 1. Left main is with no significant angiographic disease. 2. Left anterior descending has a relatively large diagonal that has 90% stenosis at the ostium. IFR was 0.75, abnormal. LAD itself has mild irregularities, but no flow-limiting stenosis. 3. Left circumflex has mild irregularities, but no flow-limiting stenosis. 4. Right coronary has mild irregularities, but no flow-limiting stenosis. PTCA AND STENT OF THE LAD DIAGONAL: The stent used was 2.5 x 8 mm Cobra. Result was 0% residual stenosis. OVERALL IMPRESSION: Successful PTCA and stent of the LAD diagonal, going from 90% initial stenosis to 0% residual. TRANSINT:[id number] Voice Confirmation ID: [id number] DOCUMENT ID: [id number] ANGELA GARCÍA MD at 1807 CC: [id number] DICTATION DATE: 03/08/19 1051 VOLUNTEER PATIENT REPRESENTATIVE: 03/08/19 1300 DIS IN 03/08/19 [place] [id number] [place] [id number]
--- NOTE | 2019-03-08 18:07 | HP ---
PATIENT: JOANNE DIANE MEDICAL RECORD: [id number] ACCOUNT: [id number] [facility] 70 ADMISSION DATE: 03/07/19 PCP: SARAH LOMBARDI MD HISTORY AND PHYSICAL EXAMINATION DIAGNOSES: 1. Unstable angina, acute coronary syndrome. 2. Hypertension. 3. Family history of coronary artery disease. HISTORY OF PRESENT ILLNESS: Mr. Diane presents with chest pain, it is going on for the past week along with increasing shortness of breath. It got quite severe yesterday. He has continued to have pain overnight despite the addition of beta pb, nitrate to his NAPOLEON inhibitor. At this time, his heart rate is in the 40s and his systolic blood pressure is 90-100. Hence, there is no room to continue to work with medical management. He continues having chest discomfort. His troponin is 0.002 units and are being elevated and is increasing. PHYSICAL EXAMINATION: GENERAL APPEARANCE: Well-nourished, well-developed, appears stated age. Level of distress, comfortable. PSYCHIATRIC: Mental status, alert, normal affect. Orientation, oriented to time, place and person. EYES: Lids and conjunctiva, noninjected. No discharge, no pallor. ENT: Lips, teeth, gums, normal dentition. Oropharynx, no cyanosis, no pallor. NECK: Carotid arteries, bilateral normal upstroke, no bruits, no thrills. JUGULAR VEINS: No jugular venous pressure or distention. CERVICAL LYMPH NODES: Nontender, nonenlarged. THYROID: Not enlarged. Nontender. No nodules. LUNGS: Respiratory effort, unlabored. CHEST: Normal curvature. No thoracic deformity. No chest wall tenderness. Percussion, resonant. Auscultation, clear. No wheezes, no rales, no rhonchi. CARDIOVASCULAR: Precordial exam, nondisplaced. No heaves or pericardial thrills. Rate and rhythm, regular. Heart sounds, normal S1, normal S2. No S3, no gallop, no rub. Systolic murmur, not heard. Diastolic murmur, not heard. EXTREMITIES: No cyanosis, no edema. Peripheral pulses, full and equal in all extremities, except as noted. No bruits appreciated. ABDOMEN: Soft, nondistended. Normal aorta. No bruit. Nontender. No masses. Liver, nontender, no hepatomegaly. Spleen, nontender, no splenomegaly. MUSCULOSKELETAL: No joint tenderness. No joint swelling. No erythema. NEUROLOGICAL: Normal gait, normal strength, normal tone. SKIN: Warm and dry. OVERALL IMPRESSION: Acute coronary syndrome. Troponin is elevating compatible with non-Q-wave myocardial infarction from his acute coronary syndrome and he continues to have the pain despite maximal medical management. We will proceed with coronary angiography. Further care depends upon findings of the angiography. TRANSINT:[id number] Voice Confirmation ID: [id number] DOCUMENT ID: [id number] HISTORY AND PHYSICAL [id number] JOANNE DIANE JEFFREY MD at 1807 CC: [id number] DICTATION DATE: 03/08/19917 FRUCTOSE LOADER: 03/08/19 1255 DIS IN 03/08/19 [facility] [address] [place] [address]
== END 2019-03-08 15:00 | disposition home or self-care (01) ==
LOC: D.ER 19:33 → OBSVTIME 20:39 → D.M2 20:39 → D.CLR 03-08 10:58
PROVIDERS: Family Medicine; ADMIT Internal Medicine Interventional Cardiology; ATTEND Internal Medicine Interventional Cardiology
DX: I24.9 Acute ischemic heart disease, unspecified (principal); I10 Essential (primary) hypertension; Z82.49 Family history of ischemic heart disease and other diseases of the circulatory system; I25.110 Atherosclerotic heart disease of native coronary artery with unstable angina pectoris

== ENCOUNTER 2019-03-21 01:36 | Observation (INO) | payer MEDICARE, OTHER ==
[~2019-03-21] VITALS: Ht 167.6 cm; Wt 73.6 kg
--- NOTE | ~2019-03-21 | HP ---
PATIENT: JOANNE DIANE MEDICAL RECORD: [id number] ACCOUNT: [id number] LOCATION:[address] : 70 ADMISSION DATE: 03/21/19 PCP: MEL YOUSSEF MD HISTORY AND PHYSICAL EXAMINATION DIAGNOSES: 1. Non-Q-wave myocardial infarction. 2. Coronary artery disease. 3. Recent percutaneous transluminal coronary angioplasty stent, left anterior descending diagonal. 4. Hypertension. HISTORY OF PRESENT ILLNESS: This is a gentleman who presents with recurrent chest pain. He presented with chest pain a few weeks ago, underwent cardiac catheterization revealing significant disease of the LAD diagonal, underwent successful PTCA stent of the LAD diagonal. He has been taking his Plavix. He had severe onset of chest discomfort with diaphoresis last night and his troponin is positive. His heart rate is in the 60s. Systolic blood pressures in the 120s on his current medications. PHYSICAL EXAMINATION: GENERAL APPEARANCE: Well-nourished, well-developed, appears stated age. Level of distress, comfortable. PSYCHIATRIC: Mental status, alert, normal affect. Orientation, oriented to time, place and person. EYES: Lids and conjunctiva, noninjected. No discharge, no pallor. ENT: Lips, teeth, gums, normal dentition. Oropharynx, no cyanosis, no pallor. NECK: Carotid arteries, bilateral normal upstroke, no bruits, no thrills. JUGULAR VEINS: No jugular venous pressure or distention. CERVICAL LYMPH NODES: Nontender, nonenlarged. THYROID: Not enlarged. Nontender. No nodules. LUNGS: Respiratory effort, unlabored. CHEST: Normal curvature. No thoracic deformity. No chest wall tenderness. Percussion, resonant. Auscultation, clear. No wheezes, no rales, no rhonchi. CARDIOVASCULAR: Precordial exam, nondisplaced. No heaves or pericardial thrills. Rate and rhythm, regular. Heart sounds, normal S1, normal S2. No S3, no gallop, no rub. Systolic murmur, not heard. Diastolic murmur, not heard. EXTREMITIES: No cyanosis, no edema. Peripheral pulses, full and equal in all extremities, except as noted. No bruits appreciated. ABDOMEN: Soft, nondistended. Normal aorta. No bruit. Nontender. No masses. Liver, nontender, no hepatomegaly. Spleen, nontender, no splenomegaly. MUSCULOSKELETAL: No joint tenderness. No joint swelling. No erythema. NEUROLOGICAL: Normal gait, normal strength, normal tone. SKIN: Warm and dry. OVERALL IMPRESSION: Non-Q-wave myocardial infarction. At this time, we will proceed with repeat coronary angiography. Further care depends upon findings of the angiography. TRANSINT:[id number] Voice Confirmation ID: [id number] DOCUMENT ID: [id number] HISTORY AND PHYSICAL [id number] JOANNE DIANE JEFFREY MD CC: [id number] DICTATION DATE: 03/21/1959 ASSEMBLER CLIP ON SUNGLASSES: 03/21/19 0753 ADM IN [facility] [address] [place] [id number]
--- NOTE | ~2019-03-21 | OP ---
PATIENT NAME: JOANNE DIANE MEDICAL RECORD: [id number] :70 LOCATION:[facility] ADMISSION DATE:03/21/19 SURGEON: ANGELA GARCÍA MD DATE OF OPERATION: 03/21/2019 DATE OF SERVICE: 03/21/2019 PROCEDURES: 1. Left heart catheterization. 2. Selective coronary angiography. 3. Left ventriculogram. 4. IFR INDICATION: Chest pain, elevated troponin compatible with non-Q-wave myocardial infarction and coronary artery disease. PROCEDURE IN DETAIL: After informed consent was obtained and after a detailed description of the risks, benefits as well as alternative therapies, the patient elected to proceed with angiogram and heart catheterization. The right femoral area was prepped and draped in normal sterile fashion. Right femoral artery was cannulated via modified Seldinger technique with placement of 6-Hungarian sheath. All catheters exchanged through this sheath. FINDINGS: The left ventriculogram was performed in standard 30-degree WAGNER view, reveals good cardiac wall motion, ejection fraction is 60%. SELECTIVE CORONARY ANGIOGRAPHY: 1. Left main showed no significant angiographic disease. 2. Left anterior descending has previously placed stent in the LAD diagonal. This is widely patent. IFR of the second diagonal as well as the LAD itself was normal. 3. Left circumflex has moderate irregularities, but no flow-limiting stenosis. 4. Right coronary has moderate irregularities, but no flow-limiting stenosis. OVERALL IMPRESSION: Wide patency of the previously placed stent in the left anterior descending diagonal. No disease of significance elsewise. Continue medical management of the coronary artery disease and cardiac risk factors. TRANSINT:[id number] Voice Confirmation ID: [id number] DOCUMENT ID: [id number] ANGELA GARCÍA MD CC: [id number] DICTATION DATE: 03/21/19 1017 CUTTER BANANA ROOM: 03/21/19 1105 ADM IN [facility] [address] [place] [id number]
--- NOTE | ~2019-03-21 | HEMODYNAMI ---
PATIENT:JOANNE DIANE MEDICAL RECORD: [id number] : 70 LOCATION:D. D.2117 ADMISSION DATE: 03/21/19 Generatedon:03/21/201910:16 Patient name: JOANNE DIANE Patient #: [id number] SSN: D OB: 1970 Date of study: 03/21/2019 Page: Of Hemodynamic Procedure Report Patient Data Patient Demographics Procedure consent was obtained First Name: JOANNE Gender: Male Last Name: ROXI : 1970 Middle Initial: M Age: 48 year(s) Patient #: [id number] Race: Black Additional ID: [id number] Contact details Address: [address] [place] [address] State: [place] City: [place] Zip code: [address] Admission Admission Data Admission Date: 03/21/2019 Admission Time: 4:41 Admit Source: Other Room #: D.2117 Weight (lbs.): 165.35 Weight (kg.): 75 Procedure Procedure Types Cath Procedure Diagnostic Procedure [facility] w/Coronaries FFR/IVUS FFR Initial FFR Additional Sedation Charges Moderate Sedation up to 15 minutes Procedure Description Procedure Date Procedure Date: 03/21/2019 Procedure Start Time: 10:00 Procedure End Time: 10:15 Procedure Staff Name Function Savage Dillon MD Performing Physician Mackenzie Jenkins RT Monitor Ondina Maier RN Nurse Beata Rodriguez RT Scrub Procedure Data Cath Procedure Contrast Material Contrast Material Type Amount (ml) Isovue 300 115 Entry Location Entry Primary Successful Side Size Upsize Upsize Entry Closure Succes sful Closure Location (Fr) 1 (Fr) 2 (Fr) Remarks Device Remarks Femoral Right 5 Fr 6 Fr artery Short Estimated blood loss: 5 ml Diagnostic catheters Device Type Used For End Catheter Placement MULTIPACK Pigtail 5 Fr LV Angiography catheter MULTIPACK JL 4.0 5Fr Left Coronary catheter Angiography MULTIPACK 3DRC 5Fr Right Coronary catheter Angiography Procedure Complications No complications Procedure Medications Medication Administration Route Dosage 0.9% NaCl I.V. 100 ml/hr Oxygen etCO2 Nasal cannula 2 l/min Lidocaine 2% added to field 20 Heparin Flush Bag added to field 2 bags (1000units/500ml NS) Plavix P.O. 75 mg Versed I.V. 2 mg Fentanyl I.V. 50 mcg Fentanyl I.V. 50 mcg Hemodynamics Rest Heart Rate: 65 (bpm) Pressure Samples Time Site Value (mmHg) Purpose Heart Use Rate(bpm) 10:01 LV 100/53,53 Snapshot 78 Snapshots Pre Cath Intra NCS Post Cath Vital Signs Time Heart Resp SPO2 etCO2 NIBP (mmHg) Rhythm Pain Sedation Rate (ipm) (%) (mmHg) Status Level (bpm) 9:34:14 67 14 100 37 142/93(122) NSR 0 (11) 10(A) , No pain 9:38:28 66 20 100 37.4 142/96(118) NSR 0 (11) 10(A) , No pain 9:42:44 68 20 100 38.9 123/83(104) NSR 0 (11) 10(A) , No pain 9:46:56 67 19 100 43.4 126/80(100) NSR 0 (11) 10(A) , No pain 9:51:06 76 17 100 35.9 120/76(94) NSR 0 (11) 10(A) , No pain 9:55:16 73 16 100 41.2 128/74(96) NSR 0 (11) 9(A) , No pain 9:59:26 62 19 100 39.7 133/85(100) NSR 0 (11) 9(A) , No pain 10:03:38 61 19 100 36.7 130/87(107) NSR 0 (11) 9(A) , No pain 10:07:52 66 16 100 17.2 122/81(104) NSR 0 (11) 9(A) , No pain 10:12:00 66 18 100 0 131/89(111) NSR 0 (11) 10(A) , No pain Medications Time Medication Route Dose Verified Delivered Reason Notes Ef fectiveness by by 9:38:10 0.9% NaCl I.V. 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 75 mg Savage Ondina for Santana Maier antiplatelet RN therapy 9:46:40 Versed I.V. 2 mg Savage Ondina for sedation Santana Maier RN 9:46:45 Fentanyl I.V. 50 Savage Ondina for sedation mcg Santana Maier RN 9:51:16 Fentanyl I.V. 50 Savage Ondina for sedation mcg Santana Maier RN Procedure Log Time Note 9:15:35 Informed consent obtained and on chart 9:17:05 Ondina Maier RN sent for patient. Start room use. 9:17:06 Time tracking: Regular hours (M-F 7:00 - 5:00) 9:17:10 Plan of Care:Hemodynamics will remain stable., Cardiac rhythm will remain stable., Comfort level will be maintained., Respiratory function will remain adequate., Patient/ family verbilizes understanding of procedure., Procedure tolerated without complication., Recovers from procedure without complications.. 9:32:59 Vital chart was started 9:35:45 Patient received from Med II to CCL 1 Alert and oriented. Tansferred to table in Supine position. 9:35:46 Warm blankets applied, and josep hugger turned on for patient comfort. 9:35:47 Correct patient and procedure confirmed by team. 9:35:48 ECG and BP/O2 sat monitors applied to patient. 9:35:49 Baseline sample Acquired. 9:35:54 Rhythm: sinus rhythm 9:35:57 Full Disclosure recording started 9:36:06 H&P Date Dictated: 03/20/2019 Within 30 days and on chart., H&P Addendum completed by physician on day of procedure. (MUST COMPLETE FOR ALL OUTPATIENTS). 9:36:08 Pre-procedure instructions explained to patient. 9:36:10 Family in waiting room. 9:36:11 Patient NPO since Midnight. 9:36:16 Is the patient allergic to Iodine/contrast media? No. 9:36:18 Was the patient premedicated? No 9:36:19 Is patient on blood thinner?Yes 9:36:22 ACC The patient was administered the following blood thiners within the last 24 hours: ACCPlavix 9:36:25 Patient diabetic? No. 9:36:35 Snore? Yes 9:36:38 Sleep apnea? No 9:36:51 IV patent on arrival in left forearm with 0.9% NaCl at [facility]. 9:36:59 Lab results completed and on chart. 9:37:03 Right groin area was prepped with chlora-prep and draped in sterile fashion 9:37:05 Alarms reviewed by R. N. 9:37:05 Sharps counted by scrub and verified by R.N. 9:38:10 0.9% NaCl 100 ml/hr I.V. was administered by Ondina Maier RN; used for procedure; 9:38:16 Oxygen 2 l/min etCO2 Nasal cannula was administered by Ondina Maier RN; used for procedure; 9:38:21 Lidocaine 2% 20ml vial added to field was administered by Savage Dillon MD; for local anesthetic; 9:38:26 Heparin Flush Bag (1000units/500ml NS) 2 bags added to field was administered by Savage Dillon MD; used for procedure; 9:38:34 Plavix 75 mg P.O. was administered by Ondina Maier RN; for antiplatelet therapy; 9:38:40 Admit Source: Other 9:38:45 Patient Weight : 165.35 lbs 9:42:58 Previous problem with sedation/anesthesia? No ? 9:43:06 Deviated septum? No 9:43:08 Opens mouth fully? Yes 9:43:12 Sticks out tongue? Yes 9:43:15 Airway obstruction? No ? 9:43:31 Pre procedure: right dorsailis pedis pulse 2+ Normal; easily identifiable; not easily obliterated 9:43:37 Patient pain scale 0/10 ?. 9:46:03 Physician arrived 9:46:03 --------ALL STOP TIME OUT------ 9:46:04 Final Timeout: patient, procedure, and site verified with staff and physician. All members of the team are in agreement. 9:46:06 Right groin site verified by team. 9:46:10 Fire Safety Assessment: A--An alcohol-based skin anteseptic being used preoperatively., C--Open oxygen or nitrous oxide is being used., D--An ESU, laser, or fiber-optic light is being used. 9:46:13 Physical assessment completed. ASA score P 2 - A patient with mild systemic disease as per Savage Dillon MD. 9:46:21 2) 60-89 Mildly reduced kidney function, and other findings (as for stage 1) point to kidney disease. 9:46:33 Sedation plan: IV Moderate Sedation Medication:Versed, Fentanyl 9:46:40 Versed 2 mg I.V. was administered by Ondina Maier RN; for sedation; 9:46:41 Use device set Femoral Dx 9:46:43 ACIST Syringe (59529) opened to sterile field. 9:46:43 Bag Decanter (2002S) opened to sterile field. 9:46:43 Medline Cath Pack ([id number]) opened to sterile field. 9:46:45 Fentanyl 50 mcg I.V. was administered by Ondina Maier RN; for sedation; 9:46:45 ACIST Hand Control (42529) opened to sterile field. 9:46:45 ACIST Manifold (87274) opened to sterile field. 9:46:46 DIAGNOSTIC Multipack 5Fr catheter set ([id number]) opened to sterile field. 9:46:46 Tegaderm 4 x 4 (1626W) opened to sterile field. 9:46:47 EMERALD Guide Wire (658-628) opened to sterile field. 9:46:48 SHEATH 5FR [place] (BUY347) opened to sterile field. 9:51:16 Fentanyl 50 mcg I.V. was administered by Ondina Maier RN; for sedation; 9:58:24 Procedure started. 10:00:14 Local anesthetic to right femoral artery with Lidocaine 2% by Savage Dillon MD.INITIAL ACCESS ONLY 10:00:16 Zero performed for pressure channel P1 10:01:00 A 5 Fr sheath was inserted into the Right Femoral artery 10:01:29 A MULTIPACK Pigtail 5 Fr catheter was advanced over the wire and used for LV Angiography. 10:01:44 LV hemodynamics recorded. 10:01:45 LV gram done using WAGNER 10:01:47 Injector settings: Ml/sec: 5, Volume: 15, 10:01:55 EF : 60 % 10:01:58 Catheter removed. 10:02:03 A MULTIPACK JL 4.0 5Fr catheter was advanced over the wire and used for Left Coronary Angiography. 10:02:27 LCA angiography performed. 10:02:30 Injector settings: Ml/sec: 3, Volume: 6, 10:03:12 Catheter removed. 10:03:16 A MULTIPACK 3DRC 5Fr catheter was advanced over the wire and used for Right Coronary Angiography. 10:03:57 RCA angiography performed. 10:03:59 Injector settings: Ml/sec: 3, Volume: 6, 10:04:02 Catheter removed. 10:04:04 Proceeding to intervention. 10:04:37 SHEATH 6FR [place] ([id number]) opened to sterile field. 10:04:38 INFLATOR Merit BasixCompak (TR0221) opened to sterile field. 10:04:39 TransactionTreerata Plus pressure wire (58367I) opened to sterile field. 10:04:52 GUIDE 6FR XBLAD 3.5 catheter ([id number]) opened to sterile field. 10:05:04 Sheath upsized to a 6 Fr Short. 10:05:10 6 Fr xblad 3.5 guide catheter was inserted over the wire 10:05:22 FFR/IFR wire advanced. 10:05:51 Baseline FFR 1. 10:06:40 Wire advanced across lesion. 10:09:42 Diag2 lesion measured at 0.95 with IFR 10:10:08 Wire redirected to lad. 10:11:41 Baseline FFR 1. 10:13:41 mLAD lesion measured at 0.95 with IFR 10:13:46 Wire removed. 10:13:47 Guide catheter removed. 10:13:56 EXOSEAL 6Fr (EX600) opened to sterile field. 10:14:02 Procedure ended.(Physican Out) 10:14:37 Contrast amount:Isovue 300 115ml. 10:14:39 Sharps counted by scrub and verified by R.N. 10:14:40 Insertion/operative site no bleeding no hematoma. 10:14:43 Post-op/insertion site Right Femoral artery dressed using a 4 x 4 and Tegaderm. 10:14:46 Post procedure rhythm: unchanged. 10:14:49 Estimated blood loss: 5 ml 10:14:50 Post procedure instruction explained to patient.Patient verbalizes understanding. 10:14:51 Patient needs reinforcement of post procedure teaching. 10:15:10 Procedure type changed to Cath procedure, Diagnostic procedure, LHC, LHC w/Coronaries, FFR/IVUS, FFR Initial, FFR Additional, Sedation Charges, Moderate Sedation up to 15 minutes 10:15:11 Procedure and supply charges have been captured, reviewed, submitted and are correct. 10:15:16 Procedure Complication : No complications 10:15:18 Vital chart was stopped 10:15:19 See physician's report for complete and final results. 10:15:23 Report given to Pre/Post Procedure Room. 10:15:26 Patient transfered to Pre/Post Procedure Room with Stretcher. 10:15:28 Procedure ended. 10:15:28 Full Disclosure recording stopped 10:15:32 End room use (Document Last) Device Usage Item Name Manufacture Quantity Catalog Hospital Part Current Minima l Lot# / Number Charge Number Stock Stock Serial# Code ACIST Acist 1 78047 093092 206300 200036 20 Syringe Medical (83581) Systems Inc Bag Microtek 1 2001S 862912 12643 572958 5 Decanter Medical Inc. () Medline Medline 1 [id number] 997793 84924 137788 5 Cath Pack ([id number]) ACIST Hand Acist 1 80663 969859 563496 888462 5 Control Medical (73999) Systems Inc ACIST Acist 1 39212 368698 668595 348258 5 Manifold Medical (38148) Systems Inc DIAGNOSTIC Cardinal 1 RV4931 506884 02240 750920 30 Multipack Health 5Fr catheter set (CL8132) Tegaderm 4 3M 1 1626W 934433 738539 455459 5 x 4 (1626W) EMERALD Cardinal 1 502-455 859966 293659 030835 5 Guide Wire Health (502-455) SHEATH 5FR Terumo 1 HIA625 345750 359055 705432 5 [place] (PYL747) MULTIPACK Cardinal 1 181129 5 Pigtail 5 Health Fr catheter MULTIPACK Cardinal 1 268363 5 JL 4.0 5Fr Health catheter MULTIPACK Cardinal 1 546293 5 3DRC 5Fr Health catheter SHEATH 6FR Terumo 1 PCH807 845170 861311 220474 40 [place] (OPW879) INFLATOR Merit 1 RH6437 307403 295778 443367 15 Merit [facility] [place] Medical BasixCompak (TD5289) Northridge Northridge 1 41288V 678326 020678233 819772 5 Verrata Plus pressure wire (29096F) GUIDE 6FR Cardinal 1 [id number] 396117 544025 849971 10 XBLAD 3.5 Health catheter (78512795) EXOSEAL 6Fr Cardinal 1 EX600 481211 213549 434579 10 (EX600) Health Signature Audit [place] Stage Time Signature Unsigned Intra-Procedure 03/21/2019 Mackenzie Jenkins 10:16:07 AM RT(R) Signatures Monitor : Mackenzie Jenkins RT Signature : Date : Time : [facility] [address] [place] [address]
--- NOTE | ~2019-03-21 | DS ---
PATIENT:JOANNE DIANE :70 MEDICAL RECORD: [id number] DISCHARGE SUMMARY ADMISSION DATE: 03/21/19 DISCHARGE DATE: 03/21/19 DATE OF SERVICE: 03/21/2019 DIAGNOSES: 1. Chest pain. 2. Elevated troponin. 3. Coronary artery disease. 4. Recent percutaneous transluminal coronary angioplasty and stent. 5. Gastroesophageal reflux disease. 6. Hypertension. HOSPITAL COURSE: Mr. Diane presents with continued chest pain. He recently underwent PTCA and stent of his LAD and diagonal. His troponin was elevated; however, repeat cardiac catheterization revealed no significant stenosis of the LAD. We did IFR of the second diagonal as well as the LAD itself and these were normal. Discharged home with treatment of GERD for possible etiology of the chest pain. TRANSINT:[id number] Voice Confirmation ID: [id number] DOCUMENT ID: [id number] ANGELA GARCÍA MD CC: [id number] DICTATION DATE: 03/21/19 1016 CHART COMPUTER: 03/21/19 2237 DIS IN 03/21/19 [facility] [address] [place] [address]
[~2019-03-21 01:36] MED LIST changes: +BAYER CHEWABLE81 MG PO; +FLOMAX0.4 MG PO; +LIPITOR20 MG PO; +LISINOPRIL5 MG PO; +MOBIC7.5 MG PO; +PLAVIX75 MG PO
[2019-03-21 02:46] LABS: BASOPHILS 0.9 % (0-2); EOSINOPHILS 6.8 % (0-7); HEMOGLOBIN 12.5 g/dL (13.5-17.5); IMMATURE GRANULOCYTES 0.3 % (0-5); LYMPHOCYTES 49.1 % (15-50); MCH 28.1 pg (26.0-34.0); MCHC 32.9 g/dL (31.0-37.0); MCV 85.4 fL (80.0-100.0); MEAN PLATELET VOLUME 11.5 fL (7.4-10.4); MONOCYTES 11.5 % (2-11); NEUTROPHILS 31.4 % (40-80); PLATELET COUNT 170 10x3/uL (130-400); RBC 4.45 10x6/uL (4.20-6.10); RDW 13.6 % (11.5-14.5); WBC 3.4 10x3/uL (4.8-10.8)
[2019-03-21 03:19] LABS: ANION GAP 10.9 mmol/L (8-16); CALCIUM 8.9 mg/dL (8.5-10.1); CARBON DIOXIDE 29.2 mmol/L (21.0-32.0); CREATININE - SERUM 1.3 mg/dL (0.6-1.3); POTASSIUM - SERUM 4.1 mmol/L (3.5-5.1)
[2019-03-21 03:36] LABS: TROPONIN-I 0.104 ng/mL (0.000-0.060)
--- NOTE | 2019-03-21 05:50 | NUR ---
ADMITTED FROM ER VIA STRETCHER DENIES CP SKIN WARM AND DRY VS 140/82 56 20 98.2
--- NOTE | 2019-03-21 07:15 | NUR ---
RECEIVED PT IN BED AAOX4 RESP UNLABORED SKIN W/D DENIES ANY PAIN OR DISCOMFORT AT THIS TIME
[2019-03-21 09:18] VITALS: BP 107/72
[2019-03-21 09:29] LABS: CKMB 0.3 U/L (0.0-3.6); CREATINE KINASE 116 UL (21-232)
[2019-03-21 09:30] LABS: TROPONIN-I 0.103 ng/mL (0.000-0.060)
--- NOTE | 2019-03-21 09:30 | NUR ---
RECEIVED CALL PT TO DISCHARGE FROM WAIST FITTER HOLDING BED 9
[2019-03-21 10:03] VITALS: BP 140/82; Ht 167.6 cm; Wt 73.6 kg
--- NOTE | 2019-03-21 10:39 | NUR ---
PT SLEEPING, RESP WITH EASE ON O2 AT 2LPM VIA IZA SANDY AT 58, DRESSING IS CDI TO RIGHT GROIN, PEDAL PULSES PALPABLE. MOTHER AT BEDSIDE, HOB IS FLAT, CALL LIGHT IN REACH.
--- NOTE | 2019-03-21 11:03 | NUR ---
DRESSING CDI, PEDAL PULSES 2+, FAMILY AT BEDSIDE, HOB IS FLAT, VSS.
--- NOTE | 2019-03-21 11:11 | NUR ---
PT SLEEPING, RESP WTIH EASE, SINUS DU AT 58. DRESSING CDI, PEDAL PULSES 2+. HOB IS FLAT, FAMILY AT BEDSIDE.
--- NOTE | 2019-03-21 11:31 | NUR ---
PT AWAKE, DENIES ANY C/O. DRESSING CDI, PEDAL PULSES PALPABLE. HOB IS FLAT.
--- NOTE | 2019-03-21 12:22 | NUR ---
1200 DR GARCÍA HAS ROUNDED ON PT. PT IS ALERT AND DENIES ANY C/O PAIN OR NAUSEA. SANDWICH AND PO FLUIDSA AT BEDSIDE, HOB ELEVATED, DRESSING CDI TO RIGHT GROIN, PEDAL PULSES PALPABLE. MOTHER AT BEDSIDE.
--- NOTE | 2019-03-21 12:23 | NUR ---
PT HAS VOIDED 500 CC CLEAR YELLOW URINE TO URINAL. DENIES ANY C/O. DAYANA SANDWICH AND PO FLUIDS WITH NO NAUSEA. DRESSING REMAINS CDI. IV DC'D WITH CATH INTACT AND PT IS DRESSING FOR DC TO HOME WITH ASSIST.
--- NOTE | 2019-03-21 12:42 | NUR ---
DC INSTRUCTIONS REVIEWED WITH PT AND MOTHER WHO VERBALIZE UNDERSTANDING.
--- NOTE | 2019-03-21 12:50 | NUR ---
PT ESCORTED TO PRIVATE AUTO VIA WC BY NURSE WITH MOTHER DRIVING HIM HOME.
--- NOTE | 2019-03-21 17:39 | NUR ---
UNABLE TO RETURN VALIUM 5 MG PO TO [facility] PT WAS DISCHARGED HOME FROM USED CAR MANAGER HOLDING VALIUM WAS NOT GIVEN PREOP PT WAS TAKEN BEFORE PREOPS COULD BE GIVEN PHARMACY WAS NOTIFIED TO PUT PT PROFILE BACK IN [facility]IS BUT DID NOT VALIUM 5 MG PO WASTED IN JOYCE JALLOH TECHNICAL OPERATOR WITNESSED
== END 2019-03-21 12:50 | disposition home or self-care (01) ==
LOC: D.ER 01:36 → OBSVTIME 04:41 → D.M2 04:41 → D.CLR 10:25
PROVIDERS: Family Medicine; ADMIT Internal Medicine Interventional Cardiology; ATTEND Internal Medicine Interventional Cardiology
DX: I21.4 Non-ST elevation (NSTEMI) myocardial infarction (principal); I10 Essential (primary) hypertension; Z95.5 Presence of coronary angioplasty implant and graft

== ENCOUNTER 2019-05-23 00:45 | Outpatient (CLI) | payer MEDICARE, OTHER ==
[~2019-05-23] VITALS: Ht 167.6 cm; Wt 74.1 kg
--- NOTE | ~2019-05-23 | HEMODYNAMI ---
PATIENT:JOANNE DIANE MEDICAL RECORD: [id number] : 70 [id number] ADMISSION DATE: 05/23/19 Generatedon:05/23/201915:52 Patient name: JOANNE DIANE Patient #: [id number] SSN: [id number] : 1970 Date of study: 05/23/2019 Page: Of Hemodynamic Procedure Report Patient Data Patient Demographics Procedure consent was obtained First Name: JOANNE Gender: Male Last Name: ROXI : 1970 Middle Initial: M Age: 48 year(s) Patient #: [id number] Race: Black SSN: [id number] Additional ID: [id number] Contact details [address]: [address] [place] [address] State: [place] City: [place] Zip code: [address] Past Medical History Allergies Allergen Reaction Date Comments Reported Other allergy 05/23/2019 clavulanic acid. Admission Admission Data Admission Date: 05/23/2019 Admission Time: 3:01 Admit Source: Emergency Insurance Payor: Private department health insurance, Medicare Room #: D.2121 [facility] #: [id number] Height (in.): 66 BSA: 1.83 (m2) Height (cm.): 167.64 BMI: 26.33 (kg/m2) Weight (lbs.): 163.14 Weight (kg.): 74 Lab Results Lab Result Date: 05/23/2019 Lab Result Time: 7:10 Biochemistry Name Units Result Min Max BUN mg/dl 20 --(----)*- 7 18 Creatinine mg/dl 1.2 --(---*)-- 0.6 1.3 CBC Name Units Result Min Max Hematocrit % 40.2 -*(----)-- 42 54 Hemoglobin g/dl 13.7 --(*---)-- 13.5 17.5 Procedure Procedure Types Cath Procedure Diagnostic Procedure [facility] w/Coronaries Sedation Charges Moderate Sedation up to 15 minutes PCI Procedure PTCA PTCA Initial Procedure Description Procedure Date Procedure Date: 05/23/2019 Procedure Start Time: 15:32 Procedure End Time: 15:51 Procedure Staff Name Function Sam Blanco MD Performing Physician Fercho Kruger RT Monitor Mackenzie Jenkins RT Scrub Ondina Maier RN Nurse Izabel John RN Reinforcing Steel Worker Procedure Data Cath Procedure Fluoroscopy Diagnostic fluoroscopy Total fluoroscopy Time: 4.1 time: 4.1 min min Diagnostic fluoroscopy Total fluoroscopy dose: 855 dose: 855 mGy mGy Contrast Material Contrast Material Type Amount (ml) Isovue 300 95 Entry Location Entry Primary Successful Side Size Upsize Upsize Entry Closure Succes sful Closure Location (Fr) 1 (Fr) 2 (Fr) Remarks Device Remarks Femoral Right 5 Fr 6 Fr Exoseal artery Short Estimated blood loss: 10 ml Diagnostic catheters Device Type Used For End Catheter Placement MULTIPACK JL 4.0 5Fr Procedure catheter MULTIPACK 3DRC 5Fr Procedure catheter MULTIPACK Pigtail 5 Fr Procedure catheter Procedure Complications No complications Procedure Medications Medication Administration Route Dosage 0.9% NaCl I.V. 100 ml/hr Oxygen etCO2 Nasal cannula 2 l/min Lidocaine 2% added to field 20 Heparin Flush Bag added to field 2 bags (1000units/500ml NS) Versed I.V. 2 mg Fentanyl I.V. 25 mcg Heparin Bolus I.V. 4000 units Integrilin (Bolus I.V. 6.8 ml 2mg/ml) Integrilin (Bolus wasted 3.2 ml 2mg/ml) Plavix P.O. 600 mg Hemodynamics Rest BSA: 1.83 (m2) O2 Consumption: Estimated: 223.92 (ml/min) O2 Consumption indexed : Estimated:122.36 (ml/min/m) Heart Rate: 76 (bpm) Pressure Samples Time Site Value (mmHg) Purpose Heart Use Rate(bpm) 15:38 LV 105/11,12 Snapshot 80 15:39 AO 115/61(89) Pullback 82 15:39 LV 98/6,14 Pullback 82 Gradients Valve Time Site 1 Site 2 Mean SEP/DFP Peak To Heart Use (mmHg) (sec/min) Peak Rate (mmHg) (bpm) Aortic 15:39 LV AO 0 7 0 82 98/6,14 115/61(89) Calculations Valve P-P Mean Valve Index Valve Source Name Gradient Area Flow (cm2) Aortic 0 0 0 0 Snapshots Pre Cath Intra NCS Post Cath Vital Signs Time Heart Resp SPO2 etCO2 NIBP Rhythm Pain Sedation Rate (ipm) (%) (mmHg) (mmHg) Status Level (bpm) 15:14:18 69 13 99 34 131/70(93) NSR 0 (11) 10(A) , No pain 15:18:05 65 22 100 32.4 121/75(90) NSR 0 (11) 10(A) , No pain 15:21:52 77 23 100 31.6 119/73(98) NSR 0 (11) 10(A) , No pain 15:25:40 84 21 98 36.8 119/72(94) NSR 0 (11) 10(A) , No pain 15:29:29 77 21 99 36.1 124/69(88) NSR 0 (11) 9(A) , No pain 15:33:16 86 21 98 29.3 116/70(90) NSR 0 (11) 9(A) , No pain 15:37:04 74 18 98 18.8 120/70(89) NSR 0 (11) 9(A) , No pain 15:41:14 70 21 98 34.6 113/71(93) NSR 0 (11) 9(A) , No pain 15:45:01 85 16 98 32 115/70(85) NSR 0 (11) 9(A) , No pain 15:48:48 79 21 98 35.3 118/70(81) NSR 0 (11) 10(A) , No pain Medications Time Medication Route Dose Verified Delivered Reason Notes Effectiveness by by 15:14:50 0.9% NaCl I.V. 100 Sam Ondina used for ml/hr [facility] Val[facility] Maier procedure MD [facility] 15:14:56 Oxygen etCO2 2 Sam Rayoa used for Nasal l/min [facility] Maier procedure cannula MD [facility] 15:15:01 Lidocaine 2% added 20ml Sam Vargas for local to vial [facility] anesthetic field MD [facility] 15:15:06 Heparin Flush added 2 Sam Sam used for Bag to bags FrancisValerio Blanco procedure (1000units/500ml field MD [facility] NS) 15:27:10 Versed I.V. 2 mg Sam Ondina for sedation St Valerio Maier MD, RN 15:27:20 Fentanyl I.V. 25 Sam Nj for sedation mcg St Valerio Maier MD, RN 15:40:40 Heparin Bolus I.V. 4000 Sam Nj for verif ied units [facility] Valerio Maier anticoagulation with Dr. MD BROOKE Camarena 15:40:57 Integrilin I.V. 6.8 Sam Nj for (Bolus 2mg/ml) ml [facility] Valerio Maier antiplatelet RN therapy 15:41:08 Integrilin wasted 3.2 Sam Nj for (Bolus 2mg/ml) ml [facility] Valerio Maier antiplatelet RN therapy 15:41:18 Plavix P.O. 600 Sam Nj for mg [facility] Valerio Maier antiplatelet RN therapy Procedure Log Time Note 14:26:45 Informed consent obtained and on chart 14:28:14 Lab Result : Hemoglobin 13.7 g/dl 14:28:14 Lab Result : Creatinine 1.2 mg/dl 14:28:14 Lab Result : BUN 20 mg/dl 14:28:14 Lab Result : Hematocrit 40.2 % 14:32:31 Patient allergic to Other allergyclavulanic acid. 14:32:38 Patient Height : 66 inches 14:32:42 Patient Weight : 163.14 lbs 14:32:49 Insurance Payor : Private health insurance, Medicare 14:33:06 Admit Source: Emergency department 14:33:52 ACC Patient presents with Unstable Angina CCS Anginal Class 3--Marked limitation of physical activity, angina occurs with ordinary activity.. 14:34:00 ACCPatient has been prescribed/administered the following anti-anginal medication within the last 2 weeks: NAPOLEON-Inhibitor 14:34:29 Time tracking: Regular hours (M-F 7:00 - 5:00) 14:34:33 Plan of Care:Hemodynamics will remain stable., Cardiac rhythm will remain stable., Comfort level will be maintained., Respiratory function will remain adequate., Patient/ family verbilizes understanding of procedure., Procedure tolerated without complication., Recovers from procedure without complications.. 14:34:50 H&P Date Dictated: 05/23/2019 Within 30 days and on chart.. 15:02:05 Procedure Status Urgent Heart Cath (IP). 15:02:25 Izabel John RN sent for patient. Start room use. 15:10:35 Patient received from Med II to CCL 2 Alert and oriented. Tansferred to table in Supine position. 15:10:36 Warm blankets applied, and josep hugger turned on for patient comfort. 15:10:36 Correct patient and procedure confirmed by team. 15:10:37 ECG and BP/O2 sat monitors applied to patient. 15:10:43 Pre-procedure instructions explained to patient. 15:10:44 Pre-op teaching completed and patient verbalized understanding. 15:10:45 Family in patients room. 15:10:46 Patient NPO since Midnight. 15:10:48 Is the patient allergic to Iodine/contrast media? No. 15:13:13 Vital chart was started 15:14:50 0.9% NaCl 100 ml/hr I.V. was administered by Ondina Maier RN; used for procedure; 15:14:56 Oxygen 2 l/min etCO2 Nasal cannula was administered by Ondina Maier RN; used for procedure; 15:15:01 Lidocaine 2% 20ml vial added to field was administered by Sam Blanco MD; for local anesthetic; 15:15:06 Heparin Flush Bag (1000units/500ml NS) 2 bags added to field was administered by Sam Blanco MD; used for procedure; 15:21:49 Baseline sample Acquired. 15:21:54 Rhythm: sinus rhythm 15:21:56 Full Disclosure recording started 15:22:36 Is patient on blood thinner?No 15:22:38 Patient diabetic? No. 15:22:43 Previous problem with sedation/anesthesia? No ? 15:22:44 Snore? Yes 15:22:45 Sleep apnea? No 15:22:46 Deviated septum? No 15:23:03 Opens mouth fully? Yes 15:23:04 Sticks out tongue? Yes 15:23:06 Airway obstruction? No ? 15:23:09 Dentures? No ? 15:23:12 Pre procedure: right dorsailis pedis pulse 2+ Normal; easily identifiable; not easily obliterated 15:23:14 Patient pain scale 0/10 ?. 15:23:43 IV patent on arrival in left forearm with 0.9% NaCl at [facility]. 15:23:49 Lab results completed and on chart. 15:23:53 Right groin area was prepped with chlora-prep and draped in sterile fashion 15::55 Alarms reviewed by R. N. 15:23:56 Sharps counted by scrub and verified by R.N. 15:24:06 Use device set Femoral Dx 15:24:07 ACIST Syringe (87894) opened to sterile field. 15:24:08 Bag Decanter (2002S) opened to sterile field. 15:24:08 Medline Cath Pack ([id number]) opened to sterile field. 15:24:10 ACIST Hand Control (83605) opened to sterile field. 15:24:10 ACIST Manifold (03162) opened to sterile field. 15:24:11 Tegaderm 4 x 4 (1626W) opened to sterile field. 15:24:11 DIAGNOSTIC Multipack 5Fr catheter set (LY4192) opened to sterile field. 15:24:12 SHEATH 5FR Henderson (JYO836) opened to sterile field. 15:24:14 EMERALD Guide Wire (018-802) opened to sterile field. 15::54 Physician arrived 15::54 --------ALL STOP TIME OUT------ 15::55 Final Timeout: patient, procedure, and site verified with staff and physician. All members of the team are in agreement. 15::57 Right groin site verified by team. 15:27:00 Fire Safety Assessment: A--An alcohol-based skin anteseptic being used preoperatively., C--Open oxygen or nitrous oxide is being used., D--An ESU, laser, or fiber-optic light is being used. 15:27:10 Versed 2 mg I.V. was administered by Ondina Maier RN; for sedation; 15:27:18 Physical assessment completed. ASA score P 2 - A patient with mild systemic disease as per Sam Blanco MD. 15:27:20 Fentanyl 25 mcg I.V. was administered by Ondina Maier RN; for sedation; 15:27:22 2) 60-89 Mildly reduced kidney function, and other findings (as for stage 1) point to kidney disease. 15:27:25 Maximum allowable contrast dose (3.7 X eGFR X 0.75)230 ml. 15:27:28 Sedation plan: IV Moderate Sedation Medication:Versed, Fentanyl 15:32:22 Zero performed for pressure channel P1 15:32:25 Procedure started. 15:32:28 Local anesthetic to right femoral artery with Lidocaine 2% by Sam Blanco MD.INITIAL ACCESS ONLY 15:32:35 A 5 Fr sheath was inserted into the Right Femoral artery 15:33:59 A MULTIPACK JL 4.0 5Fr catheter was advanced over the wire and used for Procedure. 15:34:37 LCA angiography performed. 15:38:28 Catheter exchanged over wire. 15:38:32 A MULTIPACK 3DRC 5Fr catheter was advanced over the wire and used for Procedure. 15:38:34 RCA angiography performed. 15:38:35 Catheter exchanged over wire. 15:38:45 A MULTIPACK Pigtail 5 Fr catheter was advanced over the wire and used for Procedure. 15:38:47 ACCDominant side:Co-Dominant 15:38:53 LV gram done using WAGNER 15:38:56 Injector settings: Ml/sec: 10, Volume: 20, 15:38:57 LV hemodynamics recorded. 15:39:38 EF : 60 % 15:39:39 Catheter removed. 15:39:53 WHISPER 300cm guide wire ([id number]) opened to sterile field. 15:39:57 INFLATOR Merit BasixCompak (ZA6324) opened to sterile field. 15:39:58 SHEATH 6FR Henderson (BMI411) opened to sterile field. 15:40:40 Heparin Bolus 4000 units I.V. was administered by Ondina Maier RN; for anticoagulation; verified with Dr. Camarena 15:40:57 Integrilin (Bolus 2mg/ml) 6.8 ml I.V. was administered by Ondina Maier RN; for antiplatelet therapy; 15:41:08 Integrilin (Bolus 2mg/ml) 3.2 ml wasted was administered by Ondina Maier RN; for antiplatelet therapy; 15:41:18 Plavix 600 mg P.O. was administered by Ondina Maier RN; for antiplatelet therapy; 15:41:19 Sheath upsized to a 6 Fr Short. 15:42:46 GUIDE 6FR XBLAD 3.5 catheter ([id number]) opened to sterile field. 15:42:55 6 Fr xblad 3.5 guide catheter was inserted over the wire 15:42:57 whisper wire advanced. 15:43:50 Wire advanced across lesion. 15:45:48 Inflate balloon Inflation number: 1 A EMERGE OTW 2.5 x 12 balloon ([id number]) was prepped and advanced across the 1st Diag , then inflated to 8 CHASITY for 0:45 (min:sec) . 15:46:42 Inflation number: 2 The EMERGE OTW 2.5 x 12 balloon ([id number]) was reinflated across the 1st Diag , to 12 CHASITY for 0:45 (min:sec) . 15:47:12 Balloon removed over the wire. 15:47:12 Wire removed. 15:47:23 ACC Pre-intervention DAREN Flow is 3. 15:47:28 Pre PCI Site: [place] Diag1 has 90% stenosis. 15:47:36 Post PCI Site: [place] Diag1 has 0% stenosis. 15:47:39 ACC Post-intervention DAREN Flow is 3. 15:47:42 Guide catheter removed. 15:47:58 EXOSEAL 6Fr (EX600) opened to sterile field. 15:48:05 Sheath removed intact; hemostasis achieved with Exoseal to the Right Femoral artery. 15:48:06 Procedure ended.(Physican Out) 15:49:38 Fluoroscopy time 04.10 minutes. 15:49:41 Flurop Dose total: 855 15:49:41 Fluoroscopy dose: 855 mGy 15:49:48 Dose Area Product 73441 mGy/cm. 15:49:51 Contrast amount:Isovue 300 95ml. 15:49:53 Maximum allowable dose exceeded? No. 15:49:56 Insertion/operative site no bleeding no hematoma. 15:49:58 Post-op/insertion site Right Femoral artery dressed using a 4 x 4 and Tegaderm. 15:50:01 Post right femoral artery:stable, soft, clean and dry 15:50:02 Post Procedure Pulses reassessed and unchanged 15:50:12 Post-procedure physical assessment completed. ASA score P 2 - A patient with mild systemic disease as per Sam Blanco MD. 15:50:34 Post procedure rhythm: unchanged. 15:50:36 Estimated blood loss: 10 ml 15:50:37 Post procedure instruction explained to patient.Patient verbalizes understanding. 15:50:38 Patient needs reinforcement of post procedure teaching. 15:50:57 Procedure type changed to Cath procedure, Diagnostic procedure, LHC, LHC w/Coronaries, Sedation Charges, Moderate Sedation up to 15 minutes, PCI procedure, PTCA, PTCA Initial 15:51:18 Procedure and supply charges have been captured, reviewed, submitted and are correct. 15:51:20 Procedure Complication : No complications 15:51:22 Vital chart was stopped 15:51:23 See physician's report for complete and final results. 15:51:24 Report given to PCU. 15:51:26 Patient transfered to PCU with Stretcher. 15:51:28 Procedure ended. 15:51:28 Full Disclosure recording stopped 15:51:35 ACC-PCI Only Patient was given prescriptions, or instructed by Sam Blanco MD to start/continue the following medications upon discharge: Aspirin, Plavix 15:51:36 End room use (Document Last) Intervention Summary Intervention Notes Time ActionType Lesion and Equipment Action# Pressure Duration Attributes Used 15:45:48 Inflate 1st Diag EMERGE OTW 1 8 00:45 balloon 2.5 x 12 balloon ([id number]) 15:46:42 Reinflate 1st Diag EMERGE OTW 2 12 00:45 balloon 2.5 x 12 balloon ([id number]) Device Usage Item Name Manufacture Quantity Catalog Number Hospital Part Current Min imal Lot# / Charge Number Stock Stock Serial# Code ACIST Acist 1 41608 216932 303195 976894 20 Syringe Medical (90813) Systems Inc Bag Decanter Microtek 1 2001S 753314 42254 248277 5 (2001S) Medical Inc. Medline Cath Medline 1 [id number] 140462 60801 907842 5 Pack ([id number]) ACIST Hand Acist 1 84646 735921 496523 738781 5 Control Medical (99456) Systems Inc ACIST Acist 1 92555 674147 937597 312742 5 Manifold Medical (28456) Systems Inc Tegaderm 4 x 3M 1 1626W 754499 548370 515025 5 4 (1626W) DIAGNOSTIC Cardinal 1 HO0392 546626 27562 239781 30 Staaff 5Fr catheter set (KK0947) SHEATH 5FR Terumo 1 IQE869 082110 279915 988299 5 Henderson (IQP841) EMERALD Cardinal 1 502-455 604027 381316 639169 5 Guide Wire Health (502455) MULTIPACK JL Cardinal 1 036361 5 4.0 5Fr Health catheter MULTIPACK Cardinal 1 380689 5 3DRC 5Fr Health catheter MULTIPACK Cardinal 1 074863 5 Pigtail 5 Fr Health catheter WHISPER Goodwin 1 [id number] 032256 793638 728427 5 300cm guide Vascular wire (3790458HJ) INFLATOR Merit 1 VY0901 568170 374105 712736 15 Merit Medical BasixCompak (IW4046) SHEATH 6FR Terumo 1 VVO281 353099 296048 726755 40 Henderson (ITP245) GUIDE 6FR Cardinal 1 87768574 280512 119099 197276 10 XBLAD 3.5 Health catheter (49806427) EMERGE OTW Gipsy 1 [id number] 475479 395278 611691 5 [id number] 2.5 x 12 Scientific balloon ([id number]) EXOSEAL 6Fr Cardinal 1 EX600 674515 624337 632916 10 (EX600) Health Signature Audit Bear Stage Time Signature Unsigned Intra-Procedure 05/23/2019 Fercho Kruger 3:52:25 PM RT(R) Signatures Performing Physician : Signature : Sam Blanco MD Date : Time : Monitor : Fercho Kruger RT Signature : Date : Time : Nurse : Ondina Maier RN Signature : Date : Time : [facility] [address] [place] [address]
[2019-05-23 01:09] LABS: BASOPHILS 0.4 % (0-2); HEMATOCRIT 40.7 % (42.0-54.0); IMMATURE GRANULOCYTES 0.2 % (0-5); LYMPHOCYTES 42.9 % (15-50); MCH 28.6 pg (26.0-34.0); MCHC 34.4 g/dL (31.0-37.0); MCV 83.1 fL (80.0-100.0); MEAN PLATELET VOLUME 11.6 fL (7.4-10.4); MONOCYTES 12.4 % (2-11); NEUTROPHILS 38.1 % (40-80); PLATELET COUNT 180 10x3/uL (130-400); RDW 13.2 % (11.5-14.5); WBC 4.8 10x3/uL (4.8-10.8)
[2019-05-23 01:19] LABS: APTT 23.1 SECONDS (22.8-39.4); INR 1.01 (0.85-1.17); PROTIME 12.8 SECONDS (11.6-15.0)
[2019-05-23 01:35] LABS: ALBUMIN 3.8 g/dL (3.4-5.0); ALKALINE PHOSPHATASE 78 U/L (46-116); ALT (SGPT) 32 U/L (10-68); BILIRUBIN - TOTAL 0.48 mg/dL (0.2-1.3); CALC OSMOLALITY 287 mosm/kg (275-300); CALCIUM 9.2 mg/dL (8.5-10.1); CARBON DIOXIDE 25.9 mmol/L (21.0-32.0); CHLORIDE - SERUM 107 mmol/L (98-107); CREATININE - SERUM 1.2 mg/dL (0.6-1.3); GLUCOSE 104 mg/dL (74-106); POTASSIUM - SERUM 3.9 mmol/L (3.5-5.1); PROTEIN - SERUM 7.6 g/dL (6.4-8.2); SODIUM 143 mmol/L (136-145); UREA NITROGEN 21 mg/dL (7-18); eGFR NON AFRICAN AMERICAN 69 mL/min (90-120)
[2019-05-23 01:45] LABS: CKMB 0.7 U/L (0.0-3.6); CREATINE KINASE 186 UL (21-232); MAGNESIUM - SERUM 1.7 mg/dL (1.8-2.4); TROPONIN-I 0.037 ng/mL (0.000-0.060)
--- NOTE | 2019-05-23 02:49 | NUR ---
HOMECARE AND FOLLOW UP INFORMATION PROVIDED, PT ACKNOWLEDGED, PT STABLE AT MD.
--- NOTE | 2019-05-23 04:20 | NUR ---
RECIEVED REPORT FROM JOSE C HEATH. PT ARRIVED BY WHEELCHAIR WITH MOTHER BY HIS SIDE. AAOX3, VSS, NO S/S OF DISTRESS. PT DENIES ANY PAIN AT THIS TIME. PT PLACED NPO PER CARDIOLOGY CONSULT. ADMISSION ASSESSMENT COMPLETED. PT DENIES ANY FURTHER NEEDS AT THIS TIME. WILL CTM.
[2019-05-23 04:24] VITALS: BP 128/84; BMI 26.3
--- NOTE | 2019-05-23 07:10 | NUR ---
REPORT RECEIVED FROM SKATE SHOP ATTENDANT AND PATIENT CARE ASSUMED. PATIENT LAYING IN BED ON BACK AWAKE, ALERT AND ORIENTED X 4. MOTHER AT BS. PATIENT IS STABLE AND VSS. PATIENT DENIES ANY NEEDS OR PAIN. WILL CONTINUE WITH PLAN OF CARE. SR UP X 2 BED IN LOW POSITION AND CALL LIGHT IN REACH.
[2019-05-23 07:20] LABS: BASOPHILS 0.6 % (0-2); EOSINOPHILS 7.1 % (0-7); HEMATOCRIT 40.2 % (42.0-54.0); HEMOGLOBIN 13.7 g/dL (13.5-17.5); IMMATURE GRANULOCYTES 0.6 % (0-5); LYMPHOCYTES 39.7 % (15-50); MCH 28.3 pg (26.0-34.0); MCHC 34.1 g/dL (31.0-37.0); MCV 83.1 fL (80.0-100.0); MONOCYTES 12.6 % (2-11); NEUTROPHILS 39.4 % (40-80); PLATELET COUNT 173 10x3/uL (130-400); RBC 4.84 10x6/uL (4.20-6.10); RDW 13.3 % (11.5-14.5); WBC 3.5 10x3/uL (4.8-10.8)
[2019-05-23 07:48] LABS: ALBUMIN 3.7 g/dL (3.4-5.0); ANION GAP 13.3 mmol/L (8-16); BILIRUBIN - TOTAL 0.6 mg/dL (0.2-1.3); CALCIUM 9.2 mg/dL (8.5-10.1); CARBON DIOXIDE 26.8 mmol/L (21.0-32.0); CREATININE - SERUM 1.2 mg/dL (0.6-1.3); POTASSIUM - SERUM 4.1 mmol/L (3.5-5.1); PROTEIN - SERUM 7.4 g/dL (6.4-8.2); TROPONIN-I 0.038 ng/mL (0.000-0.060)
[2019-05-23 09:00] VITALS: BP 106/72
--- NOTE | 2019-05-23 13:00 | NUR ---
PATIENT IS STABLE AND VSS. PHONE CALL RECEIVED FROM DIRECTOR SOFTWARE TO PRE OP PATIENT. PREOP PATIENT PER MAR. PATIENT IS STABLE AND VSS. MOTHER AT BS. WILL CONTINUE TO MONITOR. SR UP X 2 BED IN LOW POSITION AND CALL LIGHT IN REACH.
[2019-05-23 13:02] VITALS: BP 110/74
[2019-05-23 13:12] VITALS: Ht 167.6 cm; Wt 74.1 kg
--- NOTE | 2019-05-23 14:15 | NUR ---
PATIENT RETURNED FROM LEG BREAKER. PATIENT IS STABLE AND VSS. PATIENT HAD BALLOON OF LAD. RT GROIN DRSG C/D/I. PATIENT IS SLEEPY BUT AROUSES TO VOICE EASILY. PATIENT DENIES ANY NEEDS OR PAIN. MOTHER AT BS. PERIPHERAL PULSES GOOD. WILL CONTINUE TO MONITOR. SR UP X 2 BED IN LOW POSITION AND CALL LIGHT IN REACH.
--- NOTE | 2019-05-23 15:10 | NUR ---
PATIENT IS STABLE AND VSS. PATIENT TO BUSINESS SYSTEMS DEVELOPER VIA HOSPITAL BED AND BUSINESS SYSTEMS DEVELOPER TEAM.
[2019-05-23 15:33] LABS: APPEARANCE CLEAR (CLEAR); BILIRUBIN NEGATIVE (NEGATIVE); COLOR YELLOW (YELLOW); GLUCOSE NEGATIVE (NEGATIVE); KETONE NEGATIVE (NEGATIVE); NITRITE NEGATIVE (NEGATIVE); PROTEIN NEGATIVE (NEGATIVE); UROBILINOGEN NORMAL (NORMAL)
[2019-05-23 16:38] LABS: UDS - AMPHET NEGATIVE QUAL (NEGATIVE); UDS - BARB NEGATIVE QUAL (NEGATIVE); UDS - BENZO NEGATIVE QUAL (NEGATIVE); UDS - COCAINE NEGATIVE QUAL (NEGATIVE); UDS - OPIATE NEGATIVE QUAL (NEGATIVE); UDS - PCP NEGATIVE QUAL (NEGATIVE); UDS - THC NEGATIVE QUAL (NEGATIVE)
[2019-05-23 17:11] VITALS: BP 105/73
--- NOTE | 2019-05-23 17:29 | NUR ---
PATIENT RESTING COMFORTABLY. EYES CLOSED AND BREATHING EVENLY. PATIENT IS STABLE AND VSS. RT GROIN DRSG C/D/I. NO SIGNS OF HEMATOMA, BLEEDING OR BRUISING. WILL CONTINUE TO MONITOR. SR UP X 2 BED IN LOW POSITION AND CALL LIGHT IN REACH.
--- NOTE | 2019-05-23 19:10 | NUR ---
RECEIVED BEDSIDE REPORT. PATIENT IS ALERT AND ORIENTED, RESTING COMFORTABLY IN BED. RESPIRATIONS ARE EVEN AND UNLABORED. NO S/S OF DISTRESS. NO C/O PAIN. CALL LIGHT WITHIN REACH. DENIES NEEDS. WILL CPOC.
--- NOTE | 2019-05-23 20:08 | NUR ---
IV REMOVED. DISCHARGED INSTRUCTIONS COMPLETED AND SIGNED.
--- NOTE | 2019-05-24 07:39 | MORECARE ---
CASE MANAGEMENT DISCHARGE SUMMARY PATIENT: JOANNE DIANE UNIT: [id number] ADM DATE: 05/23/19 AGE: 48 : 70 SEX: M ROOM/BED: D.2121 AUTHOR: DONAVAN MENDOZA PHYSICIAN: REFERRING PHYSICIAN: CHELSEA LOU MD DATE OF SERVICE: 05/24/19 Discharge Plan Patient Name: JOANNE DIANE Facility: [facility]:[place] : 1970 Planned Disposition: Home Anticipated Discharge Date: 05/23/19 Discharge Date: 05/23/2019 Expected LOS: 1 Initial Reviewer: [email or web address] Initial Review Date: 05/24/2019 Generated: 05/24/19 8:38 am Coverage Notice Reviewer: [email or web address] Aide Anaya Notice Issued Date-Time: 05/23/2019 9:24 Notice Type: Medicare Outpatient Observation Notice Notice Delivered To: Patient Relationship to Patient: Self Aircraft Body Repairer Name: Delivery Method: HAND - Hand Delivered Mariaelena Days: Prior Verbal Notification: Recipient Understood Notice: Yes Recipient Signature: Yes Med Rec Note Co-signed by Attending: Coverage Notice Comment: Patient Name: JOANNE DIANE Page [phone] at 0739 All edits/amendments must be made on the electronic document DICTATION DATE: 05/24/19737 SHIPPING ORDER CLERK: MARIA M 05/24/19 0738 RPT#: [id number] DC DATE:05/23/19 STATUS: DIS IN [place] [id number] [place] [address] END OF REPORT
--- NOTE | 2019-05-24 11:58 | CN ---
PATIENT NAME:JOANNE DIANE MEDICAL RECORD: [id number] : [birth year] LOCATION:D. D.2121 ADMIT DATE: 05/23/19 ACCOUNT: [id number] CONSULTING PHYSICIAN: NO AGUIRRE MD REFERRING PHYSICIAN: CHELSEA LOU MD DATE OF CONSULTATION: 05/23/2019 HISTORY OF PRESENT ILLNESS: This is a 48-year-old gentleman with a known history of coronary artery disease, status post intervention to diagonal, he has had early restenosis approximately 1 month ago; however, this was not significant via FFI. However, he continued to have worsening pain since that time. Chest tightness, pressure up to class IV angina. Enzymes are negative at this point, certainly concern for restenosis well within the window for the above. We are asked to him concerning his cardiovascular status. PAST MEDICAL HISTORY: 1. History of hypertension. 2. Hyperlipidemia. 3. Coronary artery disease as described above. ALLERGIES: BACTRIM, AUGMENTIN. MEDICATIONS: Include lisinopril 10 mg every day, aspirin 81 every day. SOCIAL HISTORY: Nonsmoker, nondrinker. No set exercise program. Easily takes care of his all LDLs syndrome. REVIEW OF SYSTEMS: The patient reports easy bruising but reports no swollen glands. The patient reports no fever, no night sweats, no significant weight gain, no significant weight loss. No significant exercise tolerance. The patient reports no dry eyes, no irritation, no vision change. Patient reports no difficulty hearing and no ear pain. Patient reports no frequent nose bleeds or nose and sinus problems. Patient reports on arm pain on exertion. No shortness of breath while lying down. No history of heart murmur. Patient reports no cough, no wheezing or coughing up blood. Patient reports no abdominal pain, no vomiting. Normal appetite. No diarrhea and not vomiting blood. No nausea and no constipation. Patient reports no incontinence. No difficulty urinating. No hematuria. No increased frequency. Patient reports no muscle aches. No weakness, no arthralgias, no back pain. No swelling of the extremities. Patient reports no abnormal mole, no jaundice, no rashes. Reports no loss of consciousness. No weakness and no numbness. No seizures, dizziness, or headaches. The patient reports no depression, no sleep disturbance, feeling safe in a relationship and no alcohol abuse. Patient reports on fatigue. Reports no runny nose or sinus pressure. No itching, no hives, and no frequent sneezing. PHYSICAL EXAMINATION: GENERAL: No acute distress, appears stated age. VITAL SIGNS: 128/84, pulse 63 and regular. HEENT: Normocephalic, atraumatic. NECK: No JVD or bruit. HEART: Regular. II/ systolic ejection murmur. LUNGS: Good air excursion. ABDOMEN: Soft, nontender. EXTREMITIES: Pulse 2+ with no edema. CONSULT REPORT [id number] JOANNE DIANE DIAGNOSTIC DATA: EKG shows probable LVH consistent with the underlying hypertension versus ischemia. PLAN: For diagnostic angiography, intervention based on above. TRANSINT:[id number] Voice Confirmation ID: [id number] DOCUMENT ID: [id number] NO AGUIRRE MD at 1158 CC: [id number] DICTATION DATE: 05/23/19 1303 APPLICATION DEVELOPMENT INTERN: 05/23/192013 DIS IN 05/23/19 [facility] [address] [place] [address]
--- NOTE | 2019-05-25 08:12 | OP ---
PATIENT NAME: JOANNE DIANE MEDICAL RECORD: [id number] :70 LOCATION:DU ADMISSION DATE: SURGEON: NO AGUIRRE MD DATE OF OPERATION: 05/23/2019 PROCEDURES: Left heart catheterization, selective coronary angiography, right femoral artery approach. CATHETERS: A 5-[place] sheath, 5/4 left and right Silvano, 5/4 pig. The procedure was well tolerated. The patient returned to the jackman, sheath removed. ExoSeal device placed. FINDINGS: Left ventriculography in 30-degree WAGNER view: normal wall motion and normal systolic function. CORONARY ANATOMY: LEFT MAIN: Left main is free of disease. LAD: Free of disease. The first diagonal branch was then stented, this shows a tight stenosis of better than 90%. CIRCUMFLEX: Free of disease. RIGHT CORONARY ARTERY: Dominant artery, gives rise to PDA, free of disease. IMPRESSION: Critical restenosis of the diagonal. PLAN: Intervention momentarily. DESCRIPTION OF PROCEDURE: A 5-[place] sheath was exchanged for a 6-[place] sheath. XB LAD guiding catheter provided excellent guide catheter support followed by 300 cm Whisper wire was placed across the occluded diagonal and this portion of vessel. Balloon used was a 2.5 x 12 mm [place] up to 12 atmospheres for 45 seconds. Final angiography shows excellent resolution of a 90% plus restenosis. No significant residual. DAREN flow was 3 throughout the procedure. Heparin and Integrilin were used during the case. Sheath was closed with ExoSeal device. TRANSINT:[id number] Voice Confirmation ID: [id number] DOCUMENT ID: [id number] NO AGUIRRE MD at 0812 CC: [id number] DICTATION DATE: 05/24/19 1315 DIRECTOR OF RECREATION THERAPY: 05/24/19 1909 DEP CLI 05/23/19 [facility] [address] [facility] [place] [address]
== END 2019-05-23 20:09 | disposition home or self-care (01) ==
LOC: OBSVTIME → D.OPS 00:45 → D.ER 00:45 → D.M2 03:01 → D.ER 03:01 → D.M2 03:01 → OBSVTIME 03:01 → D.ER 03:45 → EDSTATUS 15:33 → D.M2 20:09 → D.OPS 20:09
PROVIDERS: Family Medicine; ATTEND Internal Medicine Nephrology
DX: I25.110 Atherosclerotic heart disease of native coronary artery with unstable angina pectoris (principal); R07.81 Pleurodynia; R59.9 Enlarged lymph nodes, unspecified; N17.9 Acute kidney failure, unspecified; E83.42 Hypomagnesemia; I10 Essential (primary) hypertension; E78.5 Hyperlipidemia, unspecified; K21.9 Gastro-esophageal reflux disease without esophagitis

== ENCOUNTER 2019-06-27 02:59 | Observation (INO) | payer MEDICARE, OTHER ==
[~2019-06-27] VITALS: Ht 167.6 cm; Wt 69.6 kg
[2019-06-27] VITALS (7 sets, daily range): BP systolic 92–125; BP diastolic 57–782; Ht 167.6 cm; Wt 69.6 kg
--- NOTE | 2019-06-27 03:37 | NUR ---
RN ADMINISTERED 1 NTG PER ORDER. PT RATES PAIN 10/10.
[2019-06-27 03:56] LABS: BASOPHILS 0.4 % (0-2); EOSINOPHILS 3.9 % (0-7); HEMATOCRIT 40.3 % (42.0-54.0); HEMOGLOBIN 13.3 g/dL (13.5-17.5); IMMATURE GRANULOCYTES 0.4 % (0-5); LYMPHOCYTES 14.9 % (15-50); MCH 28.2 pg (26.0-34.0); MCV 85.4 fL (80.0-100.0); MEAN PLATELET VOLUME 10.8 fL (7.4-10.4); MONOCYTES 12.2 % (2-11); NEUTROPHILS 68.2 % (40-80); RBC 4.72 10x6/uL (4.20-6.10); RDW 13.6 % (11.5-14.5); WBC 7.6 10x3/uL (4.8-10.8)
--- NOTE | 2019-06-27 03:57 | NUR ---
PT RATES PAIN 9/10 AFTER RECEIVING 1 NTG SL.
[2019-06-27 04:10] LABS: PLATELET COUNT 209 10x3/uL (130-400)
[2019-06-27 04:23] LABS: APTT 25.2 SECONDS (22.8-39.4); INR 1.03 (0.85-1.17)
[2019-06-27 04:29] LABS: ALBUMIN 3.7 g/dL (3.4-5.0); ALKALINE PHOSPHATASE 78 U/L (46-116); ALT (SGPT) 33 U/L (10-68); BILIRUBIN - TOTAL 0.59 mg/dL (0.2-1.3); CALC OSMOLALITY 284 mosm/kg (275-300); CALCIUM 9.2 mg/dL (8.5-10.1); CARBON DIOXIDE 27.6 mmol/L (21.0-32.0); CHLORIDE - SERUM 105 mmol/L (98-107); GLUCOSE 108 mg/dL (74-106); POTASSIUM - SERUM 4.5 mmol/L (3.5-5.1); PROTEIN - SERUM 7.3 g/dL (6.4-8.2); SODIUM 141 mmol/L (136-145); UREA NITROGEN 20 mg/dL (7-18); eGFR NON AFRICAN AMERICAN 85 mL/min (90-120)
[2019-06-27 04:38] LABS: CREATINE KINASE 241 UL (21-232); MAGNESIUM - SERUM 1.7 mg/dL (1.8-2.4)
[2019-06-27 04:42] LABS: TROPONIN-I < 0.017 ng/mL (0.000-0.060)
--- NOTE | 2019-06-27 07:27 | NUR ---
AM ROUNDS- PT IN BED RESTING COMFORTABLY, A/O X4, RESPE EVEN AND NONLABORED ON RA. LT AC IV SL. PT DENIES ANY NEEDS AT THIS TIME. CALL LIGHT IN REACH, FAMILY AT BEDSIDE, NAD NOTED, WILL CONTINUE TO PLAN OF CARE.
--- NOTE | 2019-06-27 08:39 | NUR ---
ASPIRIN GIVEN ORDERED, PT IN BED, EATING BREAKFAST, DENIES ANY NEEDS AT THIS TIME. CALL LIGHT IN REACH, FAMILY AT BEDSIDE, NAD NOTED,W ILL CONTINUE TO MONITOR.
[2019-06-27 10:34] LABS: CREATINE KINASE 221 UL (21-232)
[2019-06-27 10:36] LABS: TROPONIN-I < 0.017 ng/mL (0.000-0.060)
--- NOTE | 2019-06-27 15:55 | NUR ---
PT RESTING COMFORTABLY IN BED, DENIES ANY NEEDS AT THIS TIME. CALL LIGHT IN REACH, FAMILY AT BEDSIDE, NAD NOTED, WILL CONTINUE TO MONITOR.
[2019-06-27 16:02] LABS: CKMB 0.6 U/L (0.0-3.6); CREATINE KINASE 205 UL (21-232); TROPONIN-I < 0.017 ng/mL (0.000-0.060)
--- NOTE | 2019-06-27 21:59 | NUR ---
RESTING QUEITLY WITH NO DISTRESS NOTED. SL TO LAC INTACT WITHOUT REDNESS OR EDEMA NOTED. B/P 97/58 MOTHER AT BEDSIDE AND REFUSES NITRO PATCH.CL IN REACH
[2019-06-27 23:00] LABS: CKMB 0.7 U/L (0.0-3.6); CREATINE KINASE 189 UL (21-232); TROPONIN-I < 0.017 ng/mL (0.000-0.060)
[2019-06-28] VITALS: BP 97/60
[2019-06-28 04:00] VITALS: BP 115/67
--- NOTE | 2019-06-28 05:20 | NUR ---
REFUSED NITRO PATCH PER MOTHER. B/P 115/67.
[2019-06-28 06:10] LABS: BASOPHILS 0.6 % (0-2); EOSINOPHILS 5.9 % (0-7); HEMATOCRIT 40.8 % (42.0-54.0); HEMOGLOBIN 13.3 g/dL (13.5-17.5); IMMATURE GRANULOCYTES 0.4 % (0-5); LYMPHOCYTES 22.1 % (15-50); MCH 27.9 pg (26.0-34.0); MCHC 32.6 g/dL (31.0-37.0); MCV 85.5 fL (80.0-100.0); MEAN PLATELET VOLUME 10.8 fL (7.4-10.4); MONOCYTES 11.1 % (2-11); NEUTROPHILS 59.9 % (40-80); PLATELET COUNT 205 10x3/uL (130-400); RBC 4.77 10x6/uL (4.20-6.10); RDW 13.4 % (11.5-14.5)
[2019-06-28 06:12] LABS: WBC 5.1 10x3/uL (4.8-10.8)
[2019-06-28 06:27] LABS: CALC OSMOLALITY 279 mosm/kg (275-300); CALCIUM 9.1 mg/dL (8.5-10.1); CARBON DIOXIDE 28.7 mmol/L (21.0-32.0); CHLORIDE - SERUM 106 mmol/L (98-107); CREATININE - SERUM 1.1 mg/dL (0.6-1.3); GLUCOSE 91 mg/dL (74-106); MAGNESIUM - SERUM 1.9 mg/dL (1.8-2.4); POTASSIUM - SERUM 4.4 mmol/L (3.5-5.1); SODIUM 140 mmol/L (136-145); UREA NITROGEN 15 mg/dL (7-18); eGFR NON AFRICAN AMERICAN 76 mL/min (90-120)
[2019-06-28 09:25] VITALS: BP 110/72
[2019-06-28 14:02] VITALS: BP 114/68
--- NOTE | 2019-06-28 15:08 | CN ---
PATIENT NAME:ROBBY DIANE MEDICAL RECORD: [id number] : 70 LOCATION:D. D.2113 ADMIT DATE: 06/27/19 ACCOUNT: [id number] CONSULTING PHYSICIAN: NO AGUIRRE MD REFERRING PHYSICIAN: BIANKA TURNER MD DATE OF CONSULTATION: 06/27/2019 HISTORY OF PRESENT ILLNESS: Robby Diane is a 48-year-old gentleman with a history of coronary artery disease, status post stenting, subsequent reintervention on the diagonal branch, a little bit less than a month ago. He had onset of chest pain yesterday evening. This is somewhat atypical for his usual anginal type symptomatology, mom reports he did overeat, became markedly nauseated and then had a syncopal episode, questionable vasovagal reaction. Currently pain free. He has had no decrease in exercise tolerance, etc. Since his last intervention, no increase in anginal type symptomatology. PAST MEDICAL HISTORY: Includes; 1. History of hypertension. 2. Hyperlipidemia. 3. Coronary artery disease as described above. MEDICATIONS: Include Flomax 0.4 daily, lisinopril 10 mg p.o. daily, aspirin 81 daily. SOCIAL HISTORY: He lives with mom, somewhat developmental delay, does stay physically active. He is able to take care of ADLs. Nonsmoker, nondrinker. ALLERGIES: AUGMENTIN, BACTRIM. REVIEW OF SYSTEMS: The patient reports easy bruising but reports no swollen glands. The patient reports no fever, no night sweats, no significant weight gain, no significant weight loss. No significant exercise tolerance. The patient reports no dry eyes, no irritation, no vision change. Patient reports no difficulty hearing and no ear pain. Patient reports no frequent nose bleeds or nose and sinus problems. Patient reports on arm pain on exertion. No shortness of breath while lying down. No history of heart murmur. Patient reports no cough, no wheezing or coughing up blood. Patient reports no abdominal pain, no vomiting. Normal appetite. No diarrhea and not vomiting blood. No nausea and no constipation. Patient reports no incontinence. No difficulty urinating. No hematuria. No increased frequency. Patient reports no muscle aches. No weakness, no arthralgias, no back pain. No swelling of the extremities. Patient reports no abnormal mole, no jaundice, no rashes. Reports no loss of consciousness. No weakness and no numbness. No seizures, dizziness, or headaches. The patient reports no depression, no sleep disturbance, feeling safe in a relationship and no alcohol abuse. Patient reports on fatigue. Reports no runny nose or sinus pressure. No itching, no hives, and no frequent sneezing. PHYSICAL EXAMINATION: GENERAL: Pleasant gentleman, in no acute distress, appears stated age, alert and oriented. VITAL SIGNS: Blood pressure 107/78, pulse 82 and regular. HEENT: Normocephalic, atraumatic. NECK: No JVD or bruit. HEART: Regular. No gallops are noted. CONSULT REPORT [id number] ROXIROBBY Tyrone LUNGS: Good air excursion. ABDOMEN: Soft, nontender. EXTREMITIES: Pulses 2+. There is no edema. DIAGNOSTIC DATA: ECG is normal. Cardiac enzymes negative at this point. IMPRESSION: Somewhat atypical chest pain. Enzymes negative. Normal ECG. With recent intervention, I would simply check echocardiograph study. We will also check Doppler secondary to his syncopal episode, although this may have been more vaguely mediated. Further recommendations based on above. TRANSINT:[id number] Voice Confirmation ID: [id number] DOCUMENT ID: [id number] NO AGUIRRE MD at 1508 CC: [id number] DICTATION DATE: 06/27/19829 PELT DROPPER: 06/27/19921 ADM IN [facility] [address] [place] [address]
--- NOTE | 2019-06-28 16:15 | NUR ---
WHEN QUESTIONED IF HE WOULD LIKE TO RECEIVE THE FLU SHOT HE HAS NOT HAD ONE UPON ADMIT, HE REFUSED.
--- NOTE | 2019-06-28 16:35 | NUR ---
PROVIDED VERBAL AND WRITTEN DISCHARGE TEACHING TO PT AND MOTHER, BOTH VERBALIZED UNDERSTANDING REGARDING TEACHING. D/C LT AC IV WITH CATHETER TIP INTACT. PT LEFT UNIT VIA WHEECHAIR, WITH ALL BELONGINGS, ACCOMPANIED BY MOTHER, NAD NOTED.
--- NOTE | 2019-06-30 06:58 | MORECARE ---
CASE MANAGEMENT DISCHARGE SUMMARY PATIENT: JOANNE DIANE UNIT: [id number] ADM DATE: 06/27/19 AGE: 48 : [birth year] SEX: M ROOM/BED: D.[facility] AUTHOR: DONAVAN MENDOZA PHYSICIAN: REFERRING PHYSICIAN: BIANKA TURNER MD DATE OF SERVICE: 06/30/19 Discharge Plan Patient Name: JOANNE DIANE Facility: [facility]:[place] : 1970 Planned Disposition: Home Anticipated Discharge Date: 06/28/19 Discharge Date: 06/28/2019 Expected LOS: 1 Initial Reviewer: [email or web address] Initial Review Date: 06/30/2019 Generated: 06/30/19 7:58 am Coverage Notice Reviewer: [email or web address] Aide Anaya Notice Issued Date-Time: 06/28/2019 10:03 Notice Type: Medicare Outpatient Observation Notice Notice Delivered To: Patient Relationship to Patient: Self Controlled Area Checker Name: Delivery Method: HAND - Hand Delivered Mariaelena Days: Prior Verbal Notification: Recipient Understood Notice: Yes Recipient Signature: Yes Med Rec Note Co-signed by Attending: Coverage Notice Comment: DISCUSSED WITH PATIENT IN THE PRESENCE OF HIS MOTHER ROLANDA, AFTER VERBAL PERMISSION OBTAINED. Patient Name: JOANNE DIANE Page [phone] at 0658 All edits/amendments must be made on the electronic document DICTATION DATE: 06/30/1958 CLOTH SHEARER: MARIA M 06/30/19 0658 RPT#: [id number] DC DATE:06/28/19 STATUS: DIS IN [facility] [address] [place] [address] END OF REPORT
--- NOTE | 2019-07-03 13:56 | EC ---
PATIENT:JOANNE DIANE DATE OF SERVICE: 06/27/19 SEX: M MEDICAL RECORD: [id number] DATE OF : [birth year] LOCATION:D. D.211 AGE OF PATIENT: 48 ADMISSION DATE: 06/27/19 REFERRING PHYSICIAN: INTERPRETING PHYSICIAN: NO AGUIRRE MD ECHOCARDIOGRAM REPORT ECHO CHARGES 4 ECHO COMPLETE Date: 06/27/19 CLINICAL DIAGNOSIS: CAD,CHEST PAIN ECHOCARDIOGRAPHIC MEASUREMENTS (adult normal given) AC root (d.<3.7cm) 2.5 cm LV Septum d (<1.2 cm> 0.80 cm Valve Excursion 1.6 cm LV Septum (systole) 0.90 cm Left Atria (s.<4.0cm> 3.3 cm LVPW d(<1.2cm) 0.90 cm RV (d.<2.3cm) 3.1 cm LVPW (sytole) 1.1 cm LV diastole(<5.6CM) 4.5 cm MV E-F(>70mm/sec) cm LV systole 3.6 cm LVOT Diameter 1.8 cm MV exc.(>10mm) cm Est.ejection fraction (50-75%) % DOPPLER: LVIT cm/sec A 59.0 cm/sec E 49.0 cm/sec LA cm/sec RVSP 20.3 mmHg LVOT 79 cm/sec AOP1/2T m/s Asc. Ao 106 cm/sec RVOT 57 cm/sec RA cm/sec PA 92 cm/sec AV Gradient Peak 4.5 mmHg AV Mean 2.6 mmHg AV Area 2.0 cm MV Gradient Peak 2.5 mmHg MV Mean 1.3 mmHg MV Area cm COMMENTS: Degreasing Solution Mixer: 2 RANDY EUGENE Model Technician: 3 Dr. Camarena TAPE# PACS Pericardial Effusion N DATE OF SERVICE: Adequate 2D, color flow imaging, spectral Doppler, and M-Mode No LVH. LV internal dimension is normal. Wall motion is normal. EF is greater than or equal to 55%. Aortic valve is tricuspid. No evidence of stenosis by Doppler interrogation. Left atrium is normal. Mitral valve shows no prolapse. Trace MR. Right-sided chambers are grossly normal. Trace TR. TRANSINT:[id number] Voice Confirmation ID: [id number] DOCUMENT ID: [id number] ECHOCARDIOGRAM REPORT [id number] JOANNE DIANE GREGORY A MD at 1356 CC: [id number] DICTATION DATE: 06/30/19 1211 BAR USEFUL OR BUSSER: 06/30/19 1231 DIS IN 06/28/19 [id number] [place] [address]
--- NOTE | 2019-07-03 13:56 | EC ---
PATIENT:JOANNE DIANE DATE OF SERVICE: 06/27/19 SEX: M MEDICAL RECORD: [id number] DATE OF : [birth year] LOCATION:D. D.211 AGE OF PATIENT: 48 ADMISSION DATE: 06/27/19 REFERRING PHYSICIAN: INTERPRETING PHYSICIAN: NO AGUIRRE MD ECHOCARDIOGRAM REPORT ECHO CHARGES 4 ECHO COMPLETE Date: 06/27/19 CLINICAL DIAGNOSIS: CAD,CHEST PAIN ECHOCARDIOGRAPHIC MEASUREMENTS (adult normal given) AC root (d.<3.7cm) 2.5 cm LV Septum d (<1.2 cm> 0.80 cm Valve Excursion 1.6 cm LV Septum (systole) 0.90 cm Left Atria (s.<4.0cm> 3.3 cm LVPW d(<1.2cm) 0.90 cm RV (d.<2.3cm) 3.1 cm LVPW (sytole) 1.1 cm LV diastole(<5.6CM) 4.5 cm MV E-F(>70mm/sec) cm LV systole 3.6 cm LVOT Diameter 1.8 cm MV exc.(>10mm) cm Est.ejection fraction (50-75%) % DOPPLER: LVIT cm/sec A 59.0 cm/sec E 49.0 cm/sec LA cm/sec RVSP 20.3 mmHg LVOT 79 cm/sec AOP1/2T m/s Asc. Ao 106 cm/sec RVOT 57 cm/sec RA cm/sec PA 92 cm/sec AV Gradient Peak 4.5 mmHg AV Mean 2.6 mmHg AV Area 2.0 cm MV Gradient Peak 2.5 mmHg MV Mean 1.3 mmHg MV Area cm COMMENTS: Rigging And Controls Aircraft Mechanic: 2 RANDY EUGENE Nutrition Program Instructor: 3 Dr. Camarena TAPE# PACS Pericardial Effusion N DATE OF SERVICE: Adequate 2D, color flow imaging, spectral Doppler, and M-Mode No LVH. LV internal dimension is normal. Wall motion is normal. EF is greater than or equal to 55%. Aortic valve is tricuspid. No evidence of stenosis by Doppler interrogation. Left atrium is normal. Mitral valve shows no prolapse. Trace MR. Right-sided chambers are grossly normal. Trace TR. TRANSINT:[id number] Voice Confirmation ID: [id number] DOCUMENT ID: [id number] ECHOCARDIOGRAM REPORT [id number] JOANNE DIANE GREGORY A MD at 1356 CC: [id number] DICTATION DATE: 06/27/19 1318 PAINT BRUSH MAKER: 06/27/19 1336 DIS IN 06/28/19 [id number] [place] [address]
== END 2019-06-28 16:36 | disposition home or self-care (01) ==
LOC: D.ER 02:59 → OBSVTIME 05:02 → D.M2 05:02
PROVIDERS: Emergency Medicine; Family Medicine; ADMIT Family Medicine; ATTEND Family Medicine
DX: I25.110 Atherosclerotic heart disease of native coronary artery with unstable angina pectoris (principal); I10 Essential (primary) hypertension; D64.9 Anemia, unspecified; F84.0 Autistic disorder; F90.9 Attention-deficit hyperactivity disorder, unspecified type; F89 Unspecified disorder of psychological development; E83.42 Hypomagnesemia; K21.9 Gastro-esophageal reflux disease without esophagitis; R55 Syncope and collapse

== ENCOUNTER 2019-08-08 19:48 | Emergency (ER) | payer MEDICARE, OTHER ==
[~2019-08-08] VITALS: Ht 167.6 cm; Wt 77.3 kg
[2019-08-08 20:10] VITALS: Ht 167.6 cm; Wt 77.3 kg
[2019-08-08] MEDS ORDERED: LIPITOR10 MG PO (20:11)
[2019-08-08 20:46] LABS: BASOPHILS 0.9 % (0-2); EOSINOPHILS 8.2 % (0-7); HEMATOCRIT 42.5 % (42.0-54.0); IMMATURE GRANULOCYTES 0.5 % (0-5); LYMPHOCYTES 33.6 % (15-50); MCHC 32.9 g/dL (31.0-37.0); MEAN PLATELET VOLUME 10.8 fL (7.4-10.4); MONOCYTES 12.1 % (2-11); NEUTROPHILS 44.7 % (40-80); PLATELET COUNT 220 10x3/uL (130-400); RDW 13.8 % (11.5-14.5); WBC 4.3 10x3/uL (4.8-10.8)
[2019-08-08 21:09] LABS: APTT 25.5 SECONDS (22.8-39.4); INR 1.05 (0.85-1.17); PROTIME 13.2 SECONDS (11.6-15.0)
[2019-08-08 21:18] LABS: CALC OSMOLALITY 288 mosm/kg (275-300); CALCIUM 9.3 mg/dL (8.5-10.1); CARBON DIOXIDE 25.8 mmol/L (21.0-32.0); CHLORIDE - SERUM 108 mmol/L (98-107); CREATININE - SERUM 1.4 mg/dL (0.6-1.3); GLUCOSE 106 mg/dL (74-106); POTASSIUM - SERUM 3.6 mmol/L (3.5-5.1); SODIUM 144 mmol/L (136-145); UREA NITROGEN 17 mg/dL (7-18); eGFR NON AFRICAN AMERICAN 57 mL/min (90-120)
[2019-08-08 21:33] LABS: ALBUMIN 3.8 g/dL (3.4-5.0); ALKALINE PHOSPHATASE 81 U/L (46-116); ALT (SGPT) 30 U/L (10-68); BILIRUBIN - TOTAL 0.55 mg/dL (0.2-1.3); CKMB 0.7 U/L (0.0-3.6); CREATINE KINASE 184 UL (21-232); MAGNESIUM - SERUM 1.8 mg/dL (1.8-2.4); PROTEIN - SERUM 7.8 g/dL (6.4-8.2); TROPONIN-I < 0.017 ng/mL (0.000-0.060)
[2019-08-08 23:22] VITALS: BP 111/63
== END 2019-08-08 23:22 | disposition home or self-care (01) ==
LOC: D.ER 19:48
PROVIDERS: Emergency Medicine
DX: I95.1 Orthostatic hypotension (principal); I10 Essential (primary) hypertension; I25.10 Atherosclerotic heart disease of native coronary artery without angina pectoris

== ENCOUNTER 2020-01-25 20:56 | Observation (INO) | payer MEDICARE, OTHER ==
[~2020-01-25] VITALS: Ht 167.6 cm; Wt 72.7 kg
--- NOTE | ~2020-01-25 | HEMODYNAMI ---
PATIENT:JOANNE DIANE MEDICAL RECORD: [id number] : 70 [id number] ADMISSION DATE: 01/26/20 Generatedon:01/26/202011:51 Patient name: JOANNE DIANE Patient #: [id number] SSN: [id number] : 1970 Date of study: 01/26/2020 Page: Of Hemodynamic Procedure Report Patient Data Patient Demographics Procedure consent was obtained First Name: JOANNE Gender: Male Last Name: ROXI : 1970 Middle Initial: M Age: 49 year(s) Patient #: [id number] Race: Black SSN: [id number] Additional ID: [id number] Contact details [address]: [address] [place] [address] State: [place] City: [place] Zip code: [address] Past Medical History Allergies Allergen Reaction Date Comments Reported Other allergy 05/23/2019 clavulanic acid. Other allergy 01/26/2020 SULFA, TRIMETHOPRIM, AMOXICILLIN, CLAVULANIC Admission Admission Data Admission Date: 01/26/2020 Admission Time: 0:00 Admit Source: Other Room #: D.2127 Lab Results Lab Result Date: 01/26/2020 Lab Result Time: 0:00 Biochemistry Name Units Result Min Max BUN mg/dl 14 --(--*-)-- 7 18 Creatinine mg/dl 1.1 --(--*-)-- 0.6 1.3 eGFR ml/min 90 --(*---)-- 90 120 NONAFRICAN Troponin l ng/ml 0.157 --(----)-* 0 0.06 CBC Name Units Result Min Max Hematocrit % 41 -*(----)-- 42 54 Hemoglobin g/dl 13.2 -*(----)-- 13.5 17.5 Procedure Procedure Types Cath Procedure Diagnostic Procedure C [facility] w/Coronaries Sedation Charges Moderate Sedation up to 30 minutes PCI Procedure PTCA PTCA Initial Hemochron ACT Test Procedure Description Procedure Date Procedure Date: 01/26/2020 Procedure Start Time: 11:18 Procedure End Time: 11:48 Procedure Staff Name Function Rubens Christian MD Performing Physician Cornelia Washington RT Monitor Mackenzie Jenkins RT Scrub Izabel John RN Nurse Procedure Data Cath Procedure Fluoroscopy Diagnostic fluoroscopy Total fluoroscopy Time: 5.8 time: 5.8 min min Diagnostic fluoroscopy Total fluoroscopy dose: 617 dose: 617 mGy mGy Contrast Material Contrast Material Type Amount (ml) Isovue 370 104 Entry Location Entry Primary Successful Side Size Upsize Upsize Entry Closure Succes sful Closure Location (Fr) 1 (Fr) 2 (Fr) Remarks Device Remarks Femoral Right 5 Fr 6 Fr Exoseal artery Short Estimated blood loss: 10 ml Diagnostic catheters Device Type Used For End Catheter Placement MULTIPACK JL 4.0 5Fr Procedure catheter MULTIPACK 3DRC 5Fr Procedure catheter MULTIPACK Pigtail 5 Fr Procedure catheter Procedure Complications No complications Procedure Medications Medication Administration Route Dosage Oxygen etCO2 Nasal cannula 2 l/min Lidocaine 2% added to field 20 Heparin Flush Bag added to field 2 bags (1000units/500ml NS) 0.9% NaCl I.V. 100 ml/hr Versed I.V. 1 mg Fentanyl I.V. 50 mcg Versed I.V. 1 mg Fentanyl I.V. 50 mcg Heparin Bolus I.V. 7000 units Nitroglycerin IC/IA I.C. 100 mcg Plavix P.O. 600 mg Hemodynamics Rest HGB: 13.2 (g/dl) Heart Rate: 62 (bpm) Pressure Samples Time Site Value (mmHg) Purpose Heart Use Rate(bpm) 11:27 LV 126/-2,17 Snapshot 62 11:28 AO 112/67(88) Pullback 64 11:28 LV 121/2,18 Pullback 64 Gradients Valve Time Site 1 Site 2 Mean SEP/DFP Peak To Heart Use (mmHg) (sec/min) Peak Rate (mmHg) (bpm) Aortic 11:28 LV AO 10 6 9 64 121/2,18 112/67(88) Calculations Valve P-P Mean Valve Index Valve Source Name Gradient Area Flow (cm2) Aortic 9 10 9 10 Snapshots Pre Cath Intra NCS Post Cath Vital Signs Time Heart Resp SPO2 etCO2 NIBP (mmHg) Rhythm Pain Sedation Rate (ipm) (%) (mmHg) Status Level (bpm) 11:02:15 60 27 98 31.4 132/85(106) NSR 0 (11) 10(A) , No pain 11:06:29 64 26 95 30.6 116/84(97) NSR 0 (11) 10(A) , No pain 11:10:40 62 21 95 33.6 120/78(98) NSR 0 (11) 10(A) , No pain 11:14:49 61 21 94 35.2 115/77(93) NSR 0 (11) 9(A) , No pain 11:18:57 58 12 93 41.1 119/73(93) NSR 0 (11) 9(A) , No pain 11:23:09 60 16 95 41.9 119/75(93) NSR 0 (11) 9(A) , No pain 11:27:17 67 16 94 46.3 126/83(95) NSR 0 (11) 9(A) , No pain 11:31:31 68 17 92 41.1 121/70(91) NSR 0 (11) 9(A) , No pain 11:35:45 75 16 93 43.3 107/71(86) NSR 0 (11) 9(A) , No pain 11:39:50 72 19 95 38.9 124/75(87) NSR 0 (11) 9(A) , No pain 11:44:02 76 19 95 36.7 109/67(88) NSR 0 (11) 10(A) , No pain 11:48:08 63 20 94 35.2 113/74(89) NSR 0 (11) 10(A) , No pain Medications Time Medication Route Dose Verified Delivered Reason Notes Effectiveness by by 11:02:57 Oxygen etCO2 2 Rubens Buffie used for Nasal l/min Gino John RN procedure cannula 11:03:03 Lidocaine 2% added 20ml Rubens Rubens for local to vial Gino Christian MD anesthetic field 11:03:09 Heparin Flush added 2 Rubens Rubens used for Bag to bags Gino Christian MD procedure (1000units/500ml field NS) 11:03:18 0.9% NaCl I.V. 100 Rubens Buffie Per physician ml/hr Gino John RN 11:10:18 Versed I.V. 1 mg Rubens Buffie for sedation Gino John RN 11:10:24 Fentanyl I.V. 50 Rubens Buffie for sedation mcg Gino John RN 11:15:33 Versed I.V. 1 mg Rubens Buffie for sedation Gino John RN 11:20:37 Fentanyl I.V. 50 Rubens Buffie for sedation mcg Gino John RN 11:32:18 Heparin Bolus I.V. 7000 Rubens Buffie for verif ied units Gino John RN anticoagulation with dr christian 11:41:07 Nitroglycerin I.C. 100 Rubens Rubens for IC/IA mcg Gino salgado 11:51:01 Plavix P.O. 600 Rubens Buffie for mg Gino John RN antiplatelet therapy Procedure Log Time Note 10:26:00 Informed consent obtained and on chart 10:26:05 Diagnostic Cath Status : Urgent 10:26:30 Cornelia Washington RT(R) sent for patient. Start room use. 10:26:31 Time tracking: Regular hours (M-F 7:00 - 5:00) 10:26:35 Plan of Care:Hemodynamics will remain stable., Cardiac rhythm will remain stable., Comfort level will be maintained., Respiratory function will remain adequate., Patient/ family verbilizes understanding of procedure., Procedure tolerated without complication., Recovers from procedure without complications.. 10:43:21 H&P Date Dictated: 01/26/2020 Within 30 days and on chart.. 10:43:22 Pre-procedure instructions explained to patient. 10:43:23 Pre-op teaching completed and patient verbalized understanding. 10:43:24 Family unavailable. 10:43:26 Patient NPO since Breakfast. 10:44:05 Patient allergic to Other allergySULFA, TRIMETHOPRIM, AMOXICILLIN, CLAVULANIC 10:45:33 Lab Result : BUN 14 mg/dl 10:45:33 Lab Result : Creatinine 1.1 mg/dl 10:45:33 Lab Result : Troponin l 0.157 ng/ml 10:45:33 Lab Result : eGFR NONAFRICAN 90 ml/min 10:45:33 Lab Result : Hemoglobin 13.2 g/dl 10:45:33 Lab Result : Hematocrit 41 % 10:45:38 Lab results completed and on chart. 10:45:43 Stress Test: no; N/A ? 10:45:44 Alarms reviewed by R. N. 10:45:45 Sharps counted by scrub and verified by R.N. 10:45:49 Admit Source: Other 10:45:52 Procedure Status Urgent Heart Cath (IP). 10:53:30 Patient received from Med II to CCL 1 Alert and oriented. Tansferred to table in Supine position. 10:53:31 Warm blankets applied, and josep hugger turned on for patient comfort. 10:53:32 Correct patient and procedure confirmed by team. 10:53:33 ECG and BP/O2 sat monitors applied to patient. 10:53:39 Is the patient allergic to Iodine/contrast media? No. 10:53:41 Was the patient premedicated? Yes 11:01:15 Vital chart was started 11:01:18 Full Disclosure recording started 11:01:23 Is patient on blood thinner?No 11:01:25 Patient diabetic? No. 11:01:26 If diabetic: On Metformin? N/A 11:01:27 ----Pre-sedation anethsthesia assessment.---- 11:01:30 Previous problem with sedation/anesthesia? No ? 11:01:32 Snore? Yes 11:01:33 Sleep apnea? No 11:01:34 Deviated septum? No 11:01:35 Opens mouth fully? Yes 11:01:36 Sticks out tongue? Yes 11:01:38 Airway obstruction? No ? 11:01:40 Dentures? No ? 11:01:43 Pre procedure: right dorsailis pedis pulse 2+ Normal; easily identifiable; not easily obliterated 11:01:46 Patient pain scale 0/10 ?. 11:01:58 IV patent on arrival in right antecubital with 0.9% NaCl at O. 11:02:04 Right groin area was prepped with chlora-prep and draped in sterile fashion 11:02:08 Use device set Femoral Dx 11:02:10 ACIST Syringe (15580) opened to sterile field. 11:02:10 Bag Decanter () opened to sterile field. 11:02:11 Medline Cath Pack ([id number]) opened to sterile field. 11:02:12 ACIST Hand Control (65791) opened to sterile field. 11:02:15 DIAGNOSTIC Multipack 5Fr catheter set (UP8218) opened to sterile field. 11:02:15 ACIST Manifold (11448) opened to sterile field. 11:02:16 SHEATH 5FR [place] (ZHD447) opened to sterile field. 11:02:17 EMERALD Guide Wire (262-847) opened to sterile field. 11:02:57 Oxygen 2 l/min etCO2 Nasal cannula was administered by Izabel John RN; used for procedure; Verbal order read back and verified. 11:03:03 Lidocaine 2% 20ml vial added to field was administered by Rubens Christian MD; for local anesthetic; Verbal order read back and verified. 11:03:09 Heparin Flush Bag (1000units/500ml NS) 2 bags added to field was administered by Rubens Christian MD; used for procedure; Verbal order read back and verified. 11:03:18 0.9% NaCl 100 ml/hr I.V. was administered by Izabel John RN; Per physician; Verbal order read back and verified. 11:05:27 Risk of Mortality: 0.1 11:05:30 Risk of blood transfusion: 2.1 11:05:33 Risk of JUSTINO: 1.0 11:05:35 --------ALL STOP TIME OUT------ 11:05:35 Final Timeout: patient, procedure, and site verified with staff and physician. All members of the team are in agreement. 11:05:37 Right groin site verified by team. 11:05:40 Fire Safety Assessment: A--An alcohol-based skin anteseptic being used preoperatively., C--Open oxygen or nitrous oxide is being used., D--An ESU, laser, or fiber-optic light is being used. 11:05:43 Physical assessment completed. ASA score P 2 - A patient with mild systemic disease as per Rubens Christian MD. 11:05:46 1) 90+ Normal kidney functon but urine findings or structural abnormalities or genetic trait point to kidney disease. 11:05:49 Maximum allowable contrast dose (3.7 X eGFR X 0.75)250 ml. 11:05:52 Sedation plan: IV Moderate Sedation Medication:Versed, Fentanyl 11:10:18 Versed 1 mg I.V. was administered by Buffie John RN; for sedation; Verbal order read back and verified. 11:10:24 Fentanyl 50 mcg I.V. was administered by Izabel John RN; for sedation; Verbal order read back and verified. 11:15:33 Versed 1 mg I.V. was administered by Izabel John RN; for sedation; Verbal order read back and verified. 11:18:10 Procedure started. 11:18:16 Local anesthetic to right femoral artery with Lidocaine 2% by Rubens Christian MD.INITIAL ACCESS ONLY 11:20:26 A 5 Fr sheath was inserted into the Right Femoral artery 11:20:37 Fentanyl 50 mcg I.V. was administered by Izabel John RN; for sedation; Verbal order read back and verified. 11:21:36 A MULTIPACK JL 4.0 5Fr catheter was advanced over the wire and used for Procedure. 11:21:58 LCA angiography performed. 11:22:14 Injector settings: Ml/sec: 3, Volume: 6, 11:24:16 Catheter exchanged over wire. 11:24:30 A MULTIPACK 3DRC 5Fr catheter was advanced over the wire and used for Procedure. 11:25:40 RCA angiography performed. 11:25:43 Injector settings: Ml/sec: 3, Volume: 6, 11:25:45 ACCDominant side:Co-Dominant 11:26:06 Catheter exchanged over wire. 11:26:31 A MULTIPACK Pigtail 5 Fr catheter was advanced over the wire and used for Procedure. 11:27:13 Injector settings: Ml/sec: 5, Volume: 15, 11:27:16 LV gram done using WAGNER 11:27:26 LV hemodynamics recorded. 11:27:42 EF : 60 % 11:27:54 Catheter exchanged over wire. 11:27:55 Proceeding to intervention. 11:27:58 Use device set CHRISTIAN PCI 11:28:01 INFLATOR Merit BasixCompak (RH6268) opened to sterile field. 11:28:03 TUBING High Pressure Extension Tubing (Gino) ([id number]) opened to sterile field. 11:28:09 BMW 300cm [place] 2 J wire ([id number]) opened to sterile field. 11:28:14 SHEATH 6FR [place] (UPZ113) opened to sterile field. 11:28:32 Sheath upsized to a 6 Fr Short. 11:30:05 GUIDE 6FR XBLAD 3.5 catheter ([id number]) opened to sterile field. 11:30:40 6 Fr X-BLAD 3.5 guide catheter was inserted over the wire 11:32:18 Heparin Bolus 7000 units I.V. was administered by Izabel John RN; for anticoagulation; verified with dr christian Verbal order read back and verified. 11:32:28 BMW 300 wire advanced. 11:35:09 BMW 300cm [place] 2 J wire ([id number]) opened to sterile field. 11:35:25 2ND BMW 300 WIRE INSERTED DO WIRE. 11:35:36 Wire advanced across lesion. 11:36:03 Pre PCI Site: [place] Diag1 has 95% stenosis. 11:38:14 Inflate balloon Inflation number: 1 A EMERGE OTW 2.0 x 12 balloon ([id number]) was prepped and advanced across the 1st Diag 95, then inflated to 6 CHASITY for 0:00 (min:sec) . 11:38:33 Inflation number: 2 The EMERGE OTW 2.0 x 12 balloon ([id number]) was reinflated across the 1st Diag , to 4 CHASITY for 0:00 (min:sec) . 11:39:10 Inflation number: 3 The EMERGE OTW 2.0 x 12 balloon ([id number]) was reinflated across the 1st Diag , to 13 CHASITY for 0:00 (min:sec) . 11:41:07 Nitroglycerin IC/IA 100 mcg I.C. was administered by Rubens Christian MD; for vasodilation; Verbal order read back and verified. 11:43:37 Balloon removed over the wire. 11:43:38 Wire removed. 11:43:39 Guide catheter removed. 11:43:47 EXOSEAL 6Fr (EX600) opened to sterile field. 11:44:33 Sheath removed intact; hemostasis achieved with Exoseal to the Right Femoral artery. :44:38 Fluoroscopy time 05.80 minutes. :44:43 Fluoroscopy dose: 617 mGy :44:43 Flurop Dose total: 617 11:44:50 Dose Area Product 05215 mGy/cm. 11:44:54 Contrast amount:Isovue 370 104ml. 11:44:57 Maximum allowable dose exceeded? No. 11:44:58 Sharps counted by scrub and verified by R.N. 11:45:06 Post procedure rhythm: unchanged. 11:45:09 Estimated blood loss: 10 ml 11:45:23 Procedure ended.(Physican Out) 11:45:41 Post-op/insertion site Right Femoral artery dressed using a 4 x 4 and Tegaderm. 11:45:48 Post right femoral artery:stable, soft, clean and dry 11:45:49 Post Procedure Pulses reassessed and unchanged 11:45:52 Post procedure: right dorsailis pedis pulse 2+ Normal; easily identifiable; not easily obliterated. 11:45:56 Post-procedure physical assessment completed. ASA score P 2 - A patient with mild systemic disease as per Rubens Christian MD. 11:45:57 Post procedure instruction explained to patient.Patient verbalizes understanding. 11:45:58 Patient needs reinforcement of post procedure teaching. 11:46:25 Procedure type changed to Cath procedure, Diagnostic procedure, LHC, C w/Coronaries, Sedation Charges, Moderate Sedation up to 30 minutes, PCI procedure, PTCA, PTCA Initial, Hemochron ACT Test 11:47:13 Procedure and supply charges have been captured, reviewed, submitted and are correct. 11:47:17 Procedure Complication : No complications 11:47:23 [facility] Findings: MVD- PCI performed (see procedure note) 11:47:26 Operative report dictated upon procedure completion. 11:47:27 See physician's report for complete and final results. 11:48:31 Vital chart was stopped 11:48:34 Report given to [facility]. 11:48:38 Patient transfered to [facility] with Bed. 11:48:40 Procedure ended. 11:48:40 Full Disclosure recording stopped 11:48:52 ACC-PCI Only Patient was given prescriptions, or instructed by Rubens Christian MD to start/continue the following medications upon discharge: Plavix 11:49:32 End room use (Document Last) 11:50:09 End room use (Document Last) 11:50:43 ACT drawn and resulted at out of range high seconds. (normal therapeutic range 180-240 seconds). 11:51:01 Plavix 600 mg P.O. was administered by Izabel John RN; for antiplatelet therapy; Verbal order read back and verified. 11:51:16 End room use (Document Last) Intervention Summary Intervention Notes Time ActionType Lesion and Equipment Action# Pressure Duration Attributes Used 11:38:14 Inflate 1st Diag EMERGE OTW 1 6 00:00 balloon 2.0 x 12 balloon ([id number]) 11:38:33 Reinflate 1st Diag EMERGE OTW 2 4 00:00 balloon 2.0 x 12 balloon ([id number]) 11:39:10 Reinflate 1st Diag EMERGE OTW 3 13 00:00 balloon 2.0 x 12 balloon ([id number]) Device Usage Item Name Manufacture Quantity Catalog Number Hospital Part Current Mini mal Lot# / Charge Number Stock Stock Serial# Code ACIST Acist 1 64788 642500 370738 436116 20 Syringe Medical (42314) Systems Inc Bag Decanter Microtek 1 2001S 629013 40479 984390 5 (2001S) Medical Inc. Medline Cath Medline 1 [id number] 622773 15254 738758 5 Pack ([id number]) ACIST Hand Acist 1 44040 235963 242507 591578 5 Control Medical (38692) Systems Inc DIAGNOSTIC Cardinal 1 [id number] 980158 04029 337664 30 Multipack Health 5Fr catheter set (TM2417) ACIST Acist 1 01296 248213 785421 601024 5 Manifold Medical (84239) Systems Inc SHEATH 5FR Terumo 1 BSX270 415317 876363 656567 5 [place] (LKV827) EMERALD Cardinal 1 502-455 317804 710585 208746 5 Guide Wire Health (502455) MULTIPACK JL Cardinal 1 713023 5 4.0 5Fr Health catheter MULTIPACK Cardinal 1 409088 5 3DRC 5Fr Health catheter MULTIPACK Cardinal 1 421098 5 Pigtail 5 Fr Health catheter INFLATOR Merit 1 VE0439 750127 719568 179715 15 Merit Medical BasixCompak (XA8756) TUBING High Merit 1 [id number] 484993 19883 272239 10 Pressure Medical Extension Tubing (Christian) (WP6720O) BMW 300cm [place] 2 [id number] 970682 979751 099190 5 [place] 2 Vascular J wire (2035867K) SHEATH 6FR Terumo 1 IXZ252 325059 532895 088349 40 [place] (QME733) GUIDE 6FR Cardinal 1 [id number] 305563 952163 230930 10 XBLAD 3.5 Health catheter (56022638) EMERGE OTW [place] 1 [id number] 861791 877483 470426 5 [id number] 2.0 x 12 Scientific balloon ([id number]) EXOSEAL 6Fr Cardinal 1 EX600 026541 668056 761389 10 (EX600) Health Signature Audit [place] Stage Time Signature Unsigned Intra-Procedure 01/26/2020 Cornelia Washington 11:50:09 AM RT(R) Intra-Procedure 01/26/2020 Izabel John RN 11:51:16 AM Intra-Procedure 01/26/2020 Rubens Christian MD 11:51:30 AM [place] [address] [place] [address]
[~2020-01-25 20:56] MED LIST changes: +LIPITOR10 MG PO
[2020-01-25 21:17] LABS: EOSINOPHILS 5.1 % (0-7); HEMOGLOBIN 13.7 g/dL (13.5-17.5); IMMATURE GRANULOCYTES 0.5 % (0-5); LYMPHOCYTES 37.8 % (15-50); MCH 27.9 pg (26.0-34.0); MCHC 32.6 g/dL (31.0-37.0); MCV 85.5 fL (80.0-100.0); NEUTROPHILS 46.6 % (40-80); PLATELET COUNT 190 10x3/uL (130-400); RBC 4.91 10x6/uL (4.20-6.10); RDW 13.2 % (11.5-14.5); WBC 3.9 10x3/uL (4.8-10.8)
[2020-01-25 21:30] LABS: CALC OSMOLALITY 285 mosm/kg (275-300); CALCIUM 9.2 mg/dL (8.5-10.1); CARBON DIOXIDE 25.9 mmol/L (21.0-32.0); CHLORIDE - SERUM 107 mmol/L (98-107); CREATININE - SERUM 1.1 mg/dL (0.6-1.3); GLUCOSE 175 mg/dL (74-106); INR 0.99 (0.85-1.17); POTASSIUM - SERUM 3.4 mmol/L (3.5-5.1); PROTIME 13.1 SECONDS (11.6-15.0); SODIUM 141 mmol/L (136-145); UREA NITROGEN 15 mg/dL (7-18); eGFR NON AFRICAN AMERICAN 75 mL/min (90-120)
[2020-01-25 21:40] VITALS: BP 118/79
[2020-01-25 21:42] LABS: LIPASE 374 U/L (73-393); PRO BNP 12 pg/mL (0-125)
[2020-01-25 22:02] LABS: ALBUMIN 3.9 g/dL (3.4-5.0); ALKALINE PHOSPHATASE 80 U/L (30-120); ALT (SGPT) 34 U/L (10-68); BILIRUBIN - TOTAL 0.85 mg/dL (0.2-1.3); CKMB 0.5 U/L (0.0-3.6); CREATINE KINASE 128 UL (21-232); PROTEIN - SERUM 7.8 g/dL (6.4-8.2)
[2020-01-25 22:04] VITALS: BP 110/69
[2020-01-25 22:04] LABS: TROPONIN-I 0.158 ng/mL (0.000-0.060)
--- NOTE | 2020-01-26 01:15 | NUR ---
RECEIVED PATIENT TO ROOM 2126 VIA WHEELCHAIR FROM ER. PATIENT IS AAOX4, UP AD GILMAR. PATIENT IS ACCOMPANIED BY HIS MOTHER DUE TO HIS AUTISM. NO S/S OF DISTRESS OBSERVED, RR EVEN AND UNLABORED ON ROOM AIR. PIV TO RT AC, SL, JADE C/D/I. ADULT HX, SRS, MED REC, FPOC ALL COMPLETED. ROOM TEMP ADJUSTED, PILLOW AND BLANKET OFFERED TO MOTHER. PATIENT DENIES FURTHER NEEDS AT THIS TIME. CL IN REACH, BED LOCKED AND LOWERED. TELEMETRY APPLIED. WILL CTM.
[2020-01-26 01:48] VITALS: Ht 167.6 cm; Wt 72.7 kg
[2020-01-26 04:00] VITALS: BP 120/69
[2020-01-26 07:43] VITALS: BP 110/67
[2020-01-26 08:58] LABS: APTT 25.9 SECONDS (22.8-39.4); INR 1.01 (0.85-1.17); PROTIME 13.2 SECONDS (11.6-15.0)
[2020-01-26 09:23] LABS: ALT (SGPT) 33 U/L (10-68); CARBON DIOXIDE 26.2 mmol/L (21.0-32.0); CHLORIDE - SERUM 108 mmol/L (98-107); CHOL - HDL RATIO 6.2 ratio (2.3-4.9); CHOLESTEROL, TOTAL 162 mg/dL (0-200); CREATININE - SERUM 1.1 mg/dL (0.6-1.3); HDL CHOLESTEROL 26 mg/dL (32-96); LDL CHOLESTEROL 119 mg/dL (0-100); LDL-HDL RATIO 4.6 ratio (1.5-3.5); SODIUM 143 mmol/L (136-145); TRIGLYCERIDE 86 mg/dL (30-200); UREA NITROGEN 14 mg/dL (7-18); eGFR NON AFRICAN AMERICAN 75 mL/min (90-120)
[2020-01-26 09:30] LABS: CALC OSMOLALITY 285 mosm/kg (275-300); GLUCOSE 93 mg/dL (74-106); POTASSIUM - SERUM 4.3 mmol/L (3.5-5.1)
[2020-01-26 09:47] LABS: EOSINOPHILS 7.2 % (0-7); HEMOGLOBIN 13.2 g/dL (13.5-17.5); IMMATURE GRANULOCYTES 0.3 % (0-5); LYMPHOCYTES 31.1 % (15-50); MCH 27.7 pg (26.0-34.0); MCHC 32.2 g/dL (31.0-37.0); MCV 86.1 fL (80.0-100.0); MEAN PLATELET VOLUME 11.1 fL (7.4-10.4); MONOCYTES 14.8 % (2-11); NEUTROPHILS 45.6 % (40-80); PLATELET COUNT 186 10x3/uL (130-400); RBC 4.76 10x6/uL (4.20-6.10); RDW 13.3 % (11.5-14.5); WBC 3.1 10x3/uL (4.8-10.8)
[2020-01-26 15:52] VITALS: BP 107/72
[2020-01-26] MEDS ORDERED: PLAVIX75 MG PO (16:35)
--- NOTE | 2020-01-26 17:47 | NUR ---
IV AND TELEMETRY DCD. DC PLANS GIVEN. UNDERSTANDING VOICED. ESCORTED TO CAR BY W/C.
--- NOTE | 2020-01-28 15:10 | MORECARE ---
CASE MANAGEMENT DISCHARGE SUMMARY PATIENT: JOANNE DIANE UNIT: [id number] ADM DATE: 01/26/20 AGE: 49 : 70 SEX: M ROOM/BED: D.9477 AUTHOR: DONAVAN MENDOZA PHYSICIAN: REFERRING PHYSICIAN: CELIA BUCKLEY MD DATE OF SERVICE: 01/28/20 Discharge Plan Patient Name: JOANNE DIANE Facility: [facility]:[place] : 1970 Planned Disposition: Anticipated Discharge Date: Discharge Date: 01/26/2020 Expected LOS: 0 Initial Reviewer: [email or web address] Initial Review Date: 01/28/2020 Generated: 01/28/20 4:09 pm Patient Name: JOANNE DIANE Page 21186 at 1510 All edits/amendments must be made on the electronic document DICTATION DATE: 01/28/20 1509 PULL SOCKET ASSEMBLER: MARIA M 01/28/20 1509 RPT#: [id number] DC DATE:01/26/20 STATUS: DIS IN [facility] [address] [place] [address] END OF REPORT
== END 2020-01-26 17:47 | disposition home or self-care (01) ==
LOC: D.ER 20:56 → OBSVTIME 01-26 → D.M2 01-26
PROVIDERS: Family Medicine; Internal Medicine Cardiovascular Disease; ADMIT Family Medicine; ATTEND Family Medicine
DX: R07.9 Chest pain, unspecified (principal); E87.6 Hypokalemia; D72.819 Decreased white blood cell count, unspecified; F84.0 Autistic disorder; I10 Essential (primary) hypertension; K21.9 Gastro-esophageal reflux disease without esophagitis; F90.9 Attention-deficit hyperactivity disorder, unspecified type; I21.4 Non-ST elevation (NSTEMI) myocardial infarction; I25.10 Atherosclerotic heart disease of native coronary artery without angina pectoris; T82.855A Stenosis of coronary artery stent, initial encounter; Y83.9 Surgical procedure, unspecified as the cause of abnormal reaction of the patient, or of later complication, without mention of misadventure at the time of the procedure

== ENCOUNTER → 2020-05-13 14:35 | Outpatient (CLI) | payer MEDICARE, OTHER ==
[2020-05-13 15:08] LABS: EOSINOPHILS 11.5 % (0-7); HEMATOCRIT 40.9 % (42.0-54.0); HEMOGLOBIN 13.3 g/dL (13.5-17.5); IMMATURE GRANULOCYTES 0.3 % (0-5); MCH 27.9 pg (26.0-34.0); MCHC 32.5 g/dL (31.0-37.0); MCV 85.9 fL (80.0-100.0); MEAN PLATELET VOLUME 10.7 fL (7.4-10.4); MONOCYTES 11.5 % (2-11); NEUTROPHILS 38.7 % (40-80); PLATELET COUNT 185 10x3/uL (130-400); RBC 4.76 10x6/uL (4.20-6.10); RDW 13.1 % (11.5-14.5); WBC 3.8 10x3/uL (4.8-10.8)
[2020-05-13 16:18] LABS: ALBUMIN 3.9 g/dL (3.4-5.0); ANION GAP 12.4 mmol/L (8-16); BILIRUBIN - DIRECT 0.14 mg/dL (0.00-0.30); BILIRUBIN - INDIRECT 0.36 mg/dL (0.00-1.00); BILIRUBIN - TOTAL 0.5 mg/dL (0.2-1.3); CALCIUM 8.8 mg/dL (8.5-10.1); CARBON DIOXIDE 25.8 mmol/L (21.0-32.0); CREATININE - SERUM 1.3 mg/dL (0.6-1.3); POTASSIUM - SERUM 4.2 mmol/L (3.5-5.1); PROTEIN - SERUM 7.1 g/dL (6.4-8.2)
== END | disposition home or self-care (01) ==
LOC: D.LAB 14:35
PROVIDERS: ATTEND Nurse Practitioner
DX: K21.9 Gastro-esophageal reflux disease without esophagitis (principal); R10.13 Epigastric pain

== ENCOUNTER → 2021-01-29 18:51 | Outpatient (CLI) | payer MEDICARE, OTHER ==
[2020-07-23 10:59] VITALS: BMI 19.4
[~2021-01-29 18:51] MED LIST changes: +ASCORBIC ACID500 MG PO; +FISH OIL 1,0001 CA1 PO; +ISORDIL5 MG PO; +MULTI-DAY VITAM1 TAB PO; +NEXLETOL; +NIASPAN500 MG PO
[2021-01-29 19:38] LABS: PROTEIN - BODY FLUID 6.1 G/DL
[2021-01-29 20:10] LABS: EOS BF 4 %; MACROPHAGES BF 2 %; MESOTHELIALS BF 2 %; NEUT - BF 82 %
== END | disposition home or self-care (01) ==
LOC: D.LABREF 18:51
PROVIDERS: ATTEND Orthopaedic Surgery
DX: M25.462 Effusion, left knee (principal)